=== PATIENT | male | born 1950 | race Caucasian/White ===

== ENCOUNTER 2020-03-17 10:08 | Inpatient (IN) ==
[2020-03-17] MEDS ORDERED: fentaNYL citrate 100 MCG/2 ML VIAL ONE ×2 (10:33→11:01)
[2020-03-17] MEDS ORDERED: TICAGRELOR 90 MG TAB PO ONE (10:58)
[2020-03-17] MEDS ORDERED: HEPARIN (PORCINE) 1000 UNIT/ML 10 ML (CATH LAB USE ONLY) ONE ×2 (10:58→11:01)
[2020-03-17] MEDS ORDERED: NiCARDipine HCL INJ 2.5 MG/ML 10 ML AMP ONE (11:01)
[2020-03-17] MEDS ORDERED: MIDAZOLAM HCL 1 MG/ML 2ML VIAL ONE (11:02)
[2020-03-17] MEDS ORDERED: NITROGLYCERIN/D5W 100MCG/ML 20ML SYR ONE (11:02)
[2020-03-17] MEDS ORDERED: EPTIFIBATIDE 2 MG/ML 10 ML VIAL (CATH LAB USE ONLY) IV ONE ×2 (11:05→11:08)
[2020-03-17] MEDS ORDERED: ADENOSINE IV SOLN 3 MG/ML 2 ML VIAL IV ONE (11:10)
[2020-03-17] MEDS ORDERED: FUROSEMIDE 40 MG/4 ML VIAL IV ONE (11:57)
[2020-03-17] MEDS ORDERED: EPTIFIBATIDE 0.75 MG/ML 75MG VIAL (CATH LAB USE ONLY) ONE (12:00)
[2020-03-17] MEDS: EPTIFIBATIDE 75 MG/100 ML VIAL IV SCH ×2 (12:00→17:26)
[2020-03-17] MEDS ORDERED: ICU PROTOCOL FOR HYPERGLYCEMIA PRN (12:07)
[2020-03-17] MEDS ORDERED: LEVALBUTEROL HCL 1.25 MG/3 ML NEB NEB STA (12:34)
[2020-03-17] MEDS ORDERED: EPTIFIBATIDE BOLUS/DRIP IV STA (12:52)
[2020-03-17] MEDS ORDERED: ONDANSETRON INJ 2 MG/ML 2 ML VIAL IV PRN (12:52)
[2020-03-17] MEDS ORDERED: STAT IV Infusion **Titration per Protocol STA (12:52)
--- NOTE | 2020-03-17 12:52 | Post Anesthesia Assessment ---
Date of Service March 17, 2020 Post Sedation Assessment Vital Signs Pulse Resp BP Pulse Ox 03/17/20 12:33 115 H 22 144/81 H 94 03/17/20 12:30 117 H 26 H 93 03/17/20 12:23 124 H 22 137/97 94 Recovery Score Activity: Moves 4 extremities Respiration: Deep Breath/Cough Circulation: +/-20% PreAnes Value Consciousness: Fully Awake Oxygen Saturation: O2 needed for >90% Discharge Sedation Level of Care: Higher Level of Care Post Sedation Plan On clinical assessment, the patient appears to have tolerated the sedation without complications. Patient is recovering as anticipated. Patient will continue to be monitored by nursing and may be discharged when sedation discharge criteria are met per below protocol. Upon Completions of procedure up to 15 minutes continue every 5 minute vital signs and the P.A.R. score; then discharge to a Phase I or Fast Track to Phase II per the following guidelines: * Discharge Patient to appropriate Phase II area if PAR is 8 or greater or return to pre- procedure baseline. The post - procedure orders will be as directed. * If PAR score is less than 8 or not return to pre-procedure baseline then patient will follow Phase I monitoring till PAR is reached for Phase II. The Phase I may be done in procedure room or may call to secure a Phase I area. * If naloxone or flumazenil are used for reversal, hold in Phase I for continued monitoring from when last reversal dose was given for a minimum of 60 minutes or longer pending the nurse and/or physician discretion of patient condition before discharge to Phase II. Please call the Sedation Physician to re-evaluate and complete post-note for discharge to Phase II area. Do NOT discharge from procedure sedation or Phase 1 until post- sedation evaluation note is complete by procedure /sedation MD Sedation Discharge Instructions to be given to the patient at discharge to home.
--- NOTE | 2020-03-17 13:34 | Consultation ---
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 Pt states 2:30am had indigestion and woke up around 8 AM today and developed chest pain, diaphoresis, some SOB. At [facility] ER found to have STEMI. Initial high sensitivity troponin: 21 (0-22). -Pt received ELLIOTT to LAD and ELLIOTT to first diagonal today by Dr Tran. Reported during procedure pt with mild hypotension and was given IVF and then was noted to be requiring increased oxygen and on 15L non-rebreather. Pt was given 40mg lasix IV. Pt transferred to ICU and received nebulizer treatment with reported improvement of wheezing. Post op pt with dry cough. Denies CP, N/V Was loaded with Brilinta On Integr[facility] Cardiology - Dr Tran on board Aspirin, atorvastatin, lisinopril, metoprolol tartrate, Brilinta Echo pending Trend troponin CBC, BMP, lipid panel and A1c in AM (3) Dyslipidemia: H/O dyslipidemia not on medication Lipid panel in AM Was started on atorvastatin 80mg daily (4) Obesity: BMI: 35 Suggest lifestyle modifications DVT Prophylaxis -Lovenox per cardiology Full Code as per discussion with pt Follows with Dr Ford for routine care Pt was seen and care coordinated with Dr Reynolds. See addendum Thank you for this consultation. We will follow the patient with you during their hospital stay. You can reach a member of the [facility] Hospitalist Team 10/06 via pager @ [phone]. Supervising Physician Co-Signing Physician Notes I, Dr. Zak Reynolds, have seen the patient with physician inside sales assistant and agree with the assessment and plans for this initial hospitalist and would like to add that in addition to documentation by physician inside sales assistant that : on physical exam General: patient had nebulizer treatment previous to hospitalist team arrival, no acute distress, some cough Lungs: mild wheezes noted Heart: regular rate Abdomen: truncal obesity, nontender Extremities: right wrist with TR Band compression ST ELEVATION MYOCARDIAL INFRACTION INVOLVING LEFT ANTERIOR DESCENDING (LAD) CORONARY ARTERY STATUS INSERTION OF DRUG-ELUTING STENTS TO CORONARY ARTERY TO LEFT ANTERIOR DESCENDING (LAD) CORONARY ARTERY AND 1ST DIAGONAL COUGH WHEEZING DYSLIPIDEMIA -Patient had PCI of proximal LAD with 3.5 x 30 mm Param and 2nd stent to 1st diagonal -Patient has some cough subsequent to procedure with wheezing -nebulizer treatments of duonebs ordered as every 8 hours as needed for shortness of breath or wheezing -Chest X ray after cardiac cath " Bilateral perihilar airspace opacities, perihilar pulmonary edema versus an infectious/inflammatory process." hospitalist team will give additional IV Lasix of 20 mg x 1, send procalcitonin level and blood cultures, empirically start respiratory antibiotics of ceftriaxone and Doxycycline, will give Cepacol (menthol lozenges) prn and Mucinex prn to give comfort from cough symptoms -trend troponins after his cardiac cath today -agree with other assessment and plans and recommendations as documented by physician inside sales assistant History of Present Illness Requesting Physician: Dr Tran Reason for Consultation: medical management Attending Physician: Dayday Tran MD History of Present Illness Pt is 70 y/o M with PMH dyslipidemia, obesity presented to [facility] from [facility] ER today for CP and STEMI. Pt states 2:30am had indigestion and woke up around 8 AM today and developed chest pain, diaphoresis, some SOB. Denies cough, fever,chills, N/V/D/C, VELEZ, syncope, sore throat, rhinorrhea, abdominal pain, paresthesias, extremity edema, rashes, urinary symptoms. He was seen at [facility] ER initial EKG reported to show ST depression in leads II, III, aVF, V3-V5, ST elevation in V1. Repeat EKG with ST elevation in V1-V5. 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 Pt received ELLIOTT to LAD and ELLIOTT to first diagonal. Reported during procedure pt with mild hypotension and was given IVF and then was noted to be requiring increased oxygen and on 15L non-rebreather. Pt was given 40mg lasix IV. Pt transferred to ICU and received nebulizer treatment with reported improvement of wheezing. Post op pt with dry cough. He reports no further chest pain and reports his breathing feels improved. Denies N/V, VELEZ, diaphoresis. Labs at [facility] ER reviewed: WBC: 7, H/H: 15/43, Plt: 252, K: 3.8, Na: 139, Cl: 105, CO2: 18, gluc: 145, Ca: 8.5, BUN: 15, Cr: 0.8, GFR>60, Troponin T high sensitivity: 21 (range 0-22). Allergies Allergy/AdvReac Type Severity Reaction Status Date / Time No Known Drug Allergies Allergy Unknown NONE Verified 08/19/14 10:37 Home Medications Home Medications Medication Instructions Recorded Confirmed Type glucos sul 1LXk-frj-vdbck-C-Mn 1 cap PO DAILY 03/17/20 03/17/20 History [Glucosamine Chondroitin] ysrxe-9b-vtq-epa-fish oil [[place]-3 1 cap PO DAILY 03/17/20 03/17/20 History Fish Oil] pyridoxine (vitamin B6) [Vitamin 100 mg PO DAILY 03/17/20 03/17/20 History B-6] Patient History Medical History (Updated 03/17/20 @ 13:58 by Cristine Prieto PA-C) Dyslipidemia Obesity Surgical History (Updated 03/17/20 @ 13:58 by Cristine Prieto PA-C) History of arthroscopic knee surgery History of carpal tunnel surgery History of vasectomy Family History Mother FH: CHF (congestive heart failure) Father Stroke Social History Preferred Language: Fijian Communication Ability: Effective Mechanical Facilities Technician Required: No Beliefs That Will Affect Care: None Current Living Situation: Spouse Other Information That Helps Us Care for You: No Feels Safe at Home: Yes Safety Concerns: Feels Safe At This Time Smoking Status: Never smoker Do You Dip or Chew Tobacco: No ; Second Hand Exposure: Yes (remote/childhood) ; Tobacco Cessation Education Requested by Patient: No Hx Alcohol Use: No Hx Substance Use: No Review of Systems Review of Systems: All systems reviewed & are unremarkable except as noted in HPI & below Physical Exam Physical Exam: General: mild distress currently on non-rebreather, obese Head: normocephalic, atraumatic Eyes: conjunctiva non-injected, anicteric ENT: normal inspection external ears, nose, mucous membranes moist Neck: supple, trachea midline Lungs: mild respiratory distress, +non-productive cough, +dyspnea with talking, currently on non-breather oxymask at 5L, slight scattered wheezing CV: tachycardia, rate 104, regular rhythm, no murmur, no pretibial edema Abd: normal BS, soft, protuberant, non-tender Ext: no cyanosis or erythema Neuro: A&O x 3, no focal deficits noted, normal affect Skin: warm, dry Results & Data ([facility]) Vital Signs (Past 12 Hours) Vital Signs Pulse Pulse Resp BP Pulse Ox 03/17/20 12:53 118 H 22 97 03/17/20 12:33 115 H 22 144/81 H 94 03/17/20 12:30 117 H 26 H 93 03/17/20 12:23 124 H 22 137/97 94
[2020-03-17] MEDS ORDERED: PNEUMOCOCCAL ADMINISTRATION CHARGE ONE (13:39)
[2020-03-17] MEDS ORDERED: PNEUMOCOCCAL POLYSACCHARIDES 25 MCG/0.5 ML VIAL/SYR IM ONE (13:39)
--- NOTE | 2020-03-17 13:41 | Cardiac Catheterization ---
[facility] Data: Strip Presser Cardiac Status Clinical evaluation leading to the procedure CAD Presenation: STEMI Anginal Classification: CCS IV Heart Failure: NYHA Class: CCS III Cardiogenic Shock within 24 Hours: No Cardiac Arrest within 24 Hours: No Imaging Studies Past 6 Months: No Stress Studies Past 6 Months: No Diagnostic Physicians Name: Dayday Tran MD Status: Emergency Closure Device Percutaneous Entry Location: Radial Closure Device: Radial Band Recommendations: PCI without planned CABG PCI Indication: Immediate PCI for STEMI First Noted: First EKG Reason For Delay in PCI:: Transfer from OSH Lesion Segment Name: Proximal LAD Culprit Artery: Yes Stenosis Prior to Rx (%): 100 Chronic Total Occlusion: No IVUS: No FFR: No Pre-Procedure FERNANDO Flow: 0 Previously Treated Lesion: No Lesion Complexity: High/C Lesion Length (mm): 28 Thrombus Present: Yes Bifurcation Lesion: Yes Guidewire Across Lesion: Stenosis Post-Procedure (%): 0 Post-Procedure FERNANDO Flow: 3 Devices(s) Deployed: Yes Yes Intraprocedure Events Significant Disection: No Perforation: No Cardiac Cath Procedure Full Procedure Date March 17, 2020 Pre-Procedure Diagnosis Pre-Procedure Diagnosis: STEMI AUC Score AUC Score: 9 Post-Procedure Diagnosis Post-Procedure Diagnosis: Severe CAD Procedure(s) Performed Procedure(s) Performed: Coronary Angiography, Left Heart Cath, Drug Eluting Stent and IVUS Ordnance Truck Installation Supervisor Dayday Tran MD Correctional Agency Director(s) Raul Estimated Blood Loss Estimated Blood Loss: 15 Medication(s) Medication(s): Fentanyl, Heparin, Integrilin, Lidocaine 1%, Nicardipine, Nitroglycerin and Versed Medication(s): Ticagrelor Summary of Findings Indication: STEMI/Heart Alert Access: 6 Fr slender right radial artery Catheters: EBU 3.5 guide, diagnostic JR4, pigtail Findings: LM -medium caliber vessel, luminal irregularities LAD -large caliber vessel, 100% acute proximal occlusion Circumflex -medium caliber vessel, 20 to 30% proximal, gives off large bifurcating OM 2 with 60% stenosis involving ostium of both superior and inferior branches. Small distal circumflex with luminal irregularities. RCA -medium caliber, dominant, 70% earlymid RCA stenosis, 30 to 40% stenosis just before bifurcation of PDA/PLB. PDA with luminal irregularities. LVEDP -11 -- PCI -- Antithrombotic therapy: Heparin, ticagrelor, Integrilin Procedure: Left main cannulated with EBU 3.5 Director Information Security 50 wire passed across lesion into distal vessel Proximal LAD lesion predilated with 2.5 compliant balloon Whisper wire placed into subtotally occluded first diagonal Ostium of first diagonal dilated with 2.5 balloon IVUS used to assess length of disease, degree of calcification and for vessel sizing. Proximal to mid LAD stented with 3.5 x 30 mm Param drug-eluting stent First diagonal rewired with pilot steam yacht 50 wire Ostium of diagonal/stent struts dilated with 2.0 and 2.5 balloon Repeat IVUS showed opposed stent, underexpanded Stent postdilated aggressively with 4.0 balloon After post dilation had no reflow in mid to distal LAD and diagonal treated with IC vasodilators, IC Integrilin Ostium of diagonal stented with 2.5 x 12 Point Clear drug-eluting stent Kissing balloon inflation with 4.0 NC in LAD and stent balloon in diagonal IC vasodilators administered for spasm Post procedure FERNANDO 3 flow, stents well expanded with minimal residual stenosis and no apparent cardiac complications. Patient with relative hypotension during procedure requiring intermittent IV fluids Received a total of 1 L of fluids and post procedure frequent coughing, hypoxic requiring nonrebreather. Given IV Lasix 40 mg x1. Arterial Closure: TR band Summary: 1. Anterior STEMI/acute 100% proximal LAD occlusion 2. Moderate to severe multi-vessel non-culprit coronary artery disease -70% earlymid RCA 60% stenosis involving inferior/superior branches of bifurcating OM 2 3. Acute systolic heart failure. LVEDP 26 4. Successful PCI of proximal to mid LAD with drug-eluting stent (3.5 x 30 mm Point Clear; postdilated with 4.0 NC). -Successful placement of ELLIOTT (2.5 x 12 Point Clear) to ostium of first diagonal at bifurcation with proximal LAD stent Recommendations: Admit to ICU for continued monitoring Loaded with ticagrelor 180 mg in cath With no reflow continue Integrilin for 8 hours Continue dual-antiplatelet therapy for at least 1 year. Trend troponins until peak, Check Echo Uptitrate beta-yolanda/YON as BP allows Additional Lasix as needed for heart failure symptoms High-dose statin Consult cardiac Rehab Plan for staged PCI of RCA at some point during hospitalization. Hemodynamics Rest Ao:: 110/67/80 Final Ao: 107/65/80 LV: 102/13 Recommendations Recommendations: PCI without planned CABG Specimens Specimens: None Radiation Exposure (mGy) 6901 Contrast (mls) 200 Fluids (cc crystalloids) Fluids (cc crystalloids): 1000 Drains Drains: None Anesthesia Moderate Procedural Complication(s) None Disposition ICU I attest to the content of the Intraoperative Record and any orders documented therein. Any exceptions are noted below. [facility] Card Cath Procedure Codes Cardiac Catheterization Procedure 1: Cardiovascular Cath Procedures: 36377 Coronaries and LHC (+/-LV) Therapeutic Services & Ancillary Proc Procedure 1: Cardiovascular Tx and Anc Procedures: 85579 IV Ultrasound (Coronary or Graft) Moderate Sedation Procedure 1: Sedation/Anesthesia: 80178 Mod Sedation by the same physician;Init15 Min Child Age 5 & Up Procedure 2: Sedation/Anesthesia: 14370 Mod Sedation by the same physician; Ea [id number] Minutes Stenting Procedure 1: Cardiovascular Stent Procedures: 57705 Perc transluminal revascularization of acute sub/total occl, aMI Procedure 2: Cardiovascular Stent Procedures: 73450 Ea addl branch of a major coronary artery PG Care Time/CCT Total # of Minutes Spent Total Time Spent with Patient: Total time spent is greater than 50% in coordination of care (as documented) at patient's floor/unit and/or counseling patient:
--- NOTE | 2020-03-17 15:00 | XRay Report ---
XR chest 1V portable CLINICAL HISTORY: Cough and shortness of breath COMPARISON STUDY: No previous studies for comparison. FINDINGS: The heart is normal in size. There are bilateral perihilar airspace opacities. Diagnostic c onsiderations include pulmonary edema versus a bilateral infectious/inflammatory process. There is mi ld right hilar prominence. There are no pleural effusions. There is an old right clavicular fracture. [ IMPRESSION: Bilateral perihilar airspace opacities, perihilar pulmonary edema versus an infectious/in flammatory process. Clinical and radiographic follow-up is recommended. ACT 112: Negative or not required by law. Electronically signed by: Mu Boudreaux M.D. 03/17/2020 2:59 PM
--- NOTE | 2020-03-17 15:01 | Electrocardiogram Report ---
Test Reason : Blood Pressure : / mmHG Vent. Rate : 111 BPM Atrial Rate : 111 BPM P-R Int : 154 ms QRS Dur : 092 ms QT Int : 350 ms P-R-T Axes : 053 102 005 degrees QTc Int : 476 ms Sinus tachycardia Septal infarct , age undetermined Lateral infarct , possibly acute Marked ST abnormality, possible inferior subendocardial injury ACUTE LA / STEMI Abnormal ECG No previous ECGs available Confirmed by Phill Monson ([id number]) on 03/17/2020 3:00:54 PM Referred By: Cordell Tran Confirmed By:Phill Monson
[2020-03-17] MEDS ORDERED: ALBUT/IPRATROP 3MG/0.5MG NEB 3 ML VIAL NEB PRN ×2 (15:28→16:12)
[2020-03-17] MEDS ORDERED: COUGH DROP (SUGAR FREE) LOZ 24 LOZ/1 BOX BUCCAL PRN (15:28)
[2020-03-17] MEDS ORDERED: COUGH DROP (SUGAR FREE) LOZ 24 LOZ/1 BOX BUCCAL STA (15:28)
[2020-03-17] MEDS ORDERED: guaiFENesin 600 MG TABCR PO PRN (15:30)
[2020-03-17] MEDS ORDERED: ALBUT/IPRATROP 3MG/0.5MG NEB 3 ML VIAL NEB SCH (15:30)
[2020-03-17] MEDS ORDERED: FUROSEMIDE 20 MG in SYRINGE 0 ML IV ONE (15:45)
--- NOTE | 2020-03-17 15:54 | XCELERA ---
[id number]
[2020-03-17] MEDS ORDERED: cefTRIAXone SODIUM 2,000 MG in DEXTROSE 5% 50 ML IV SCH (16:00)
[2020-03-17 16:01] LABS: Base Excess VBG -1.6 mEq/L; pH VBG 7.38 (7.36-7.41)
[2020-03-17] MEDS: METOPROLOL TARTRATE 25 MG TAB PO SCH ×2 (16:11→21:01)
[2020-03-17 16:22] LABS: BUN Creatinine Ratio 16.6 (10-20); Blood Urea Nitrogen 15 mg/dl (7-18); Calcium 8.3 mg/dl (8.5-10.1); Carbon Dioxide 23 mmol/L (21-32); Chloride 107 mmol/L (98-107); Creatinine Clr Calc Pharmacy 79.6 ml/min; Est GFR (African American) 97.3; Glucose 131 mg/dl (70-99); Potassium 4.6 mmol/L (3.5-5.1); Sodium 140 mmol/L (136-145)
[2020-03-17] MEDS ORDERED: METOPROLOL TARTRATE 25 MG TAB PO ONE (16:30)
[2020-03-17 16:45] LABS: Troponin I > 200.000 ng/ml (0-0.045)
[2020-03-17] MEDS ORDERED: DOXYCYCLINE HYCLATE 100 MG in DEXTROSE 5% 100 ML IV SCH (17:00)
--- NOTE | 2020-03-17 17:23 | Cardiology Consultation ---
Date of Consultation March 17, 2020 Assessment & Plan (1) STEMI (ST elevation myocardial infarction): --Post primary PCI with ELLIOTT to LAD, bifurcating diagonal 2. Ischemic cardiomyopathy/acute systolic heart failureEF 25 to 30% 3. Residual severe RCA disease 4. Dyslipidemia Post procedure minimal residual chest pain Urine output more than a 1.5 L after IV Lasix Respiratory symptoms improving post diuresis, bronchodilators Echo reviewedakinetic anterior wall with EF of 25 to 30% Trend troponin until peak Continue Integrilin for a total of 8 hours Continue DAPT with aspirin, ticagrelor Additional IV Lasix if worsened respiratory symptoms this evening Start low-dose beta-yolanda now Start YON in a.m. as BP allows. Spironolactone at some point if able Continue high intensity statin Plan for staged PCI of RCA at some point during hospitalization. Potentially tomorrow if renal function and acute heart failure stable. Elevated risk for LV thrombus and repeat echo in 2 days If persistent severe LV dysfunction at that time will consider LifeVest History of Present Illness Attending Physician: Dayday Tran MD History of Present Illness Mr. Galloway is a 70-year-old man here with acute chest pain and ECG concerning for anterior STEMI seen emergently on arrival as a heart alert. No prior cardiac history. Cardiac risk factors include dyslipidemia, obesity. Other medical issues include osteoarthritis. Chest pain began around 2:30 AM today, approximately 7 hours prior to arrival at [facility]. Pain initially mild, intermittent but became severe and persisting around 8:30 AM. Denies similar symptoms in the past. Initially presented to [facility] where serial ECGs noted anterior ST elevations with reciprocal inferior ST changes. Patient given heparin, aspirin prior to transfer by ground in the setting of weather. Patient hemodynamically and electrically stable on transfer. Chest pain 9 out of 10 on arrival to [facility]. Emergent catheterization revealed an occluded proximal LAD which was treated with 2 drug-eluting stents, 1 to LAD, 1 to bifurcating diagonal with good angiographic result. Also noted to have a 70% earlymid RCA stenosis. Course complicated by borderline hypotension requiring IV fluids. Post procedure, hypoxic/dyspneic requiring nonrebreather. LVEDP 26 and given IV Lasix 40 mg x 1. Allergies Allergy/AdvReac Type Severity Reaction Status Date / Time No Known Drug Allergies Allergy Unknown NONE Verified 08/19/14 10:37 Home Medications Home Medications Medication Instructions Recorded Confirmed Type glucos sul 5VOs-rhu-ztaqd-C-Mn 1 cap PO DAILY 03/17/20 03/17/20 History [Glucosamine Chondroitin] nuwar-5w-zkm-epa-fish oil [[place]-3 1 cap PO DAILY 03/17/20 03/17/20 History Fish Oil] pyridoxine (vitamin B6) [Vitamin 100 mg PO DAILY 03/17/20 03/17/20 History B-6] Patient History Medical History (Updated 03/17/20 @ 13:58 by Cristine Prieto PA-C) Dyslipidemia Obesity Surgical History (Updated 03/17/20 @ 13:58 by Cristine Prieto PA-C) History of arthroscopic knee surgery History of carpal tunnel surgery History of vasectomy Family History Mother FH: CHF (congestive heart failure) Father Stroke Social History Preferred Language: Yoruba Communication Ability: Effective Fruit Or Nut Farmworker Required: No Beliefs That Will Affect Care: None Current Living Situation: Spouse Other Information That Helps Us Care for You: No Feels Safe at Home: Yes Safety Concerns: Feels Safe At This Time Smoking Status: Never smoker Do You Dip or Chew Tobacco: No ; Second Hand Exposure: Yes (remote/childhood) ; Tobacco Cessation Education Requested by Helio pepe: No Hx Alcohol Use: No Hx Substance Use: No Review of Systems Review of Systems: All systems reviewed & are unremarkable except as noted in HPI & below Physical Exam Physical Exam: General: Uncomfortable Eyes: Sclerae anicteric HENT: Oropharynx clear mucous membranes moist Neck: Elevated JVP Lungs: Decreased breath sounds at left base, scattered wheezes, few crackles on right Cardiac: Tachycardic, regular, no murmur Vascular: TR band in place, no peripheral edema Abdomen: Soft, nontender, nondistended, positive bowel sounds. Extremities: Well perfused Skin: No rashes or lesions. Neuro: Nonfocal Psych: Alert orient x3, normal affect and mood Results & Data ([facility]) Vital Signs (Past 12 Hours) Vital Signs Temp Pulse Pulse Resp BP BP Pulse Ox 03/17/20 16:50 108 H 24 137/95 93 03/17/20 15:50 98.2 F 99 H 22 121/86 95 03/17/20 15:19 99 H 23 127/86 94 03/17/20 15:00 97.9 F 97 H 96 H 22 124/86 124/86 95 03/17/20 14:15 103 H 24 126/88 95 03/17/20 13:43 106 H 29 H 131/83 92 03/17/20 13:33 112 H 23 120/82 94 03/17/20 13:23 105 H 20 127/86 93 03/17/20 13:01 97.7 F 107 H 23 122/91 95 03/17/20 12:53 118 H 22 97 03/17/20 12:33 115 H 22 144/81 H 94 03/17/20 12:30 123 H 26 H 93 03/17/20 12:23 124 H 22 137/97 94 PG Care Time/CCT Total # of Minutes Spent Total Time Spent with Patient: Total time spent is greater than 50% in coordination of care (as documented) at patient's floor/unit and/or counseling patient: Coding Level of Care Code 06908 Inpt Consult Level 5 Diagnoses STEMI (ST elevation myocardial infarction) I21.3
--- NOTE | 2020-03-17 17:35 | History & Physical Report ---
Date of Service March 17, 2020 Assessment & Plan (1) STEMI (ST elevation myocardial infarction): ST ELEVATION MYOCARDIAL INFRACTION INVOLVING LEFT ANTERIOR DESCENDING (LAD) CORONARY ARTERY (2) S/P cardiac cath: STATUS INSERTION OF DRUG-ELUTING STENTS TO CORONARY ARTERY TO LEFT ANTERIOR DESCENDING (LAD) CORONARY ARTERY AND 1ST DIAGONAL -Pt is 70 y/o M with PMH dyslipidemia, obesity presented to [facility] [employer] from [facility] ER today for CP and STEMI. Pt states 2:30am had indigestion and woke up around 8 AM today and developed chest pain, diaphoresis, some SOB. At [facility] ER found to have STEMI. Initial high sensitivity troponin: 21 (0-22). -Pt received ELLIOTT to LAD and ELLIOTT to first diagonal today by Dr Tran. Reported during procedure pt with mild hypotension and was given IVF and then was noted to be requiring increased oxygen and on 15L non-rebreather. Pt was given 40mg lasix IV. Pt transferred to ICU and received nebulizer treatment with reported improvement of wheezing. Post op pt with dry cough. Denies CP, N/V Probable fluid overload - continue supplemental oxygen, monitor I&O's Was loaded with Brilinta On [facility] Cardiology - Dr Tran on board Aspirin, atorvastatin, lisinopril, metoprolol tartrate, Brilinta Echo pending Trend troponin CBC, BMP, lipid panel and A1c in AM (3) Dyslipidemia: H/O dyslipidemia not on medication Lipid panel in AM Was started on atorvastatin 80mg daily (4) Obesity: BMI: 35 Suggest lifestyle modifications DVT Prophylaxis -Lovenox per cardiology Full Code as per discussion with pt Follows with Dr Ford for routine care Pt was seen and care coordinated with Dr Reynolds. See addendum Thank you for this consultation. We will follow the patient with you during their hospital stay. You can reach a member of the [facility] Hospitalist Team 10/06 via pager @ [phone]. Admission and Anticipated Discharge Date Admission Date: March 17, 2020 History of Present Illness Chief Complaint: CP Primary Care Provider: Hayden Ford MD Pt is 70 y/o M with PMH dyslipidemia, obesity presented to [facility] from [facility] ER today for CP and STEMI. Pt states 2:30am had indigestion and woke up around 8 AM today and developed chest pain, diaphoresis, some SOB. Denies cough, fever,chills, N/V/D/C, VELEZ, syncope, sore throat, rhinorrhea, abdominal pain, paresthesias, extremity edema, rashes, urinary symptoms. He was seen at [facility] ER initial EKG reported to show ST depression in leads II, III, aVF, V3-V5, ST elevation in V1. Repeat EKG with ST elevation in V1-V5. Patient was started on heparin drip and was transferred by EMS to [facility]. Pt received ELLIOTT to LAD and ELLIOTT to first diagonal. Reported during procedure pt with mild hypotension and was given IVF and then was noted to be requiring increased oxygen and on 15L non-rebreather. Pt was given 40mg lasix IV. Pt transferred to ICU and received nebulizer treatment with reported improvement of wheezing. Post op pt with dry cough. He reports no further chest pain and reports his breathing feels improved. Denies N/V, VELEZ, diaphoresis. Labs at [facility] ER reviewed: WBC: 7, H/H: 15/43, Plt: 252, K: 3.8, Na: 139, Cl: 105, CO2: 18, gluc: 145, Ca: 8.5, BUN: 15, Cr: 0.8, GFR>60, Troponin T high sensitivity: 21 (range 0-22). Allergies Allergy/AdvReac Type Severity Reaction Status Date / Time No Known Drug Allergies Allergy Unknown NONE Verified 08/19/14 10:37 Home Medications Home Medications Medication Instructions Recorded Confirmed Type glucos sul [id number]-Mn 1 cap PO DAILY 03/17/20 03/17/20 History [Glucosamine Chondroitin] [id number]-epa-fish oil [[place]-3 1 cap PO DAILY 03/17/20 03/17/20 History Fish Oil] pyridoxine (vitamin B6) [Vitamin 100 mg PO DAILY 03/17/20 03/17/20 History B-6] Past Med/Surg History Medical History (Updated 03/17/20 @ 13:58 by Cristine Prieto PA-C) Dyslipidemia Obesity Surgical History (Updated 03/17/20 @ 13:58 by Cristine Prieto PA-C) History of arthroscopic knee surgery History of carpal tunnel surgery History of vasectomy Family History Mother FH: CHF (congestive heart failure) Father Stroke Social History Preferred Language: Serbian Communication Ability: Effective Director Telecommunications Required: No Beliefs That Will Affect Care: None Current Living Situation: Spouse Other Information That Helps Us Care for You: No Feels Safe at Home: Yes Safety Concerns: Feels Safe At This Time Smoking Status: Never smoker Do You Dip or Chew Tobacco: No ; Second Hand Exposure: Yes (remote/childhood) ; Tobacco Cessation Education Requested by Patient: No Hx Alcohol Use: No Hx Substance Use: No Review of Systems Review of Systems: All systems reviewed & are unremarkable except as noted in HPI & below Physical Exam Physical Exam: General: mild distress currently on non-rebreather, obese Head: normocephalic, atraumatic Eyes: conjunctiva non-injected, anicteric ENT: normal inspection external ears, nose, mucous membranes moist Neck: supple, trachea midline Lungs: mild respiratory distress, +non-productive cough, +dyspnea with talking, currently on non-breather oxymask at 5L, slight scattered wheezing CV: tachycardia, rate 104, regular rhythm, no murmur, no pretibial edema Abd: normal BS, soft, protuberant, non-tender Ext: no cyanosis or erythema Neuro: A&O x 3, no focal deficits noted, normal affect Skin: warm, dry Results & Data Results & Data ([facility]) Vital Signs (Past 12 Hours) Vital Signs Temp Pulse Pulse Resp BP BP Pulse Ox 03/17/20 16:50 108 H 24 137/95 93 03/17/20 15:50 36.8 C 99 H 22 121/86 95 03/17/20 15:19 99 H 23 127/86 94 03/17/20 15:00 36.6 C 97 H 96 H 22 124/86 124/86 95 03/17/20 14:15 103 H 24 126/88 95 03/17/20 13:43 106 H 29 H 131/83 92 03/17/20 13:33 112 H 23 120/82 94 03/17/20 13:23 105 H 20 127/86 93 03/17/20 13:01 36.5 C 107 H 23 122/91 95 03/17/20 12:53 118 H 22 97 04/30/20 12:33 115 H 22 144/81 H 94 03/17/20 12:30 123 H 26 H 93 03/17/20 12:23 124 H 22 137/97 94 Laboratory Results BMP 03/17/20 15:37 Sodium 140 Potassium 4.6 Chloride 107 Carbon Dioxide 23 BUN 15 Creatinine 0.92 Glucose 131 H Calcium 8.3 L Cardiac Enzymes 03/17/20 Range/Units 15:37 Troponin I > 200.000 H* (0-0.045) ng/ml Code Status & VTE Plan VTE Prophylaxis Plan VTE Prophylaxis will be ordered: Yes Supervising Physician Co-Signing Physician Notes I, Dr. Zak Reynolds, have seen the patient with physician quality assistant and agree with the assessment and plans for this initial hospitalist and would like to add that in addition to documentation by physician quality assistant that : on physical exam General: patient had nebulizer treatment previous to hospitalist team arrival, no acute distress, some cough Lungs: mild wheezes noted Heart: regular rate Abdomen: truncal obesity, nontender Extremities: right wrist with TR Band compression ST ELEVATION MYOCARDIAL INFRACTION INVOLVING LEFT ANTERIOR DESCENDING (LAD) CORONARY ARTERY STATUS INSERTION OF DRUG-ELUTING STENTS TO CORONARY ARTERY TO LEFT ANTERIOR DESCENDING (LAD) CORONARY ARTERY AND 1ST DIAGONAL COUGH WHEEZING DYSLIPIDEMIA -Patient had PCI of proximal LAD with 3.5 x 30 mm Param and 2nd stent to 1st diagonal -Patient has some cough subsequent to procedure with wheezing -nebulizer treatments of duonebs ordered as every 8 hours as needed for shortness of breath or wheezing -Chest X ray after cardiac cath " Bilateral perihilar airspace opacities, perihilar pulmonary edema versus an infectious/inflammatory process." hospitalist team will give additional IV Lasix of 20 mg x 1, send procalcitonin level and blood cultures, empirically start respiratory antibiotics of ceftriaxone and Doxycycline, will give Cepacol (menthol lozenges) prn and Mucinex prn to give comfort from cough symptoms -trend troponins after his cardiac cath today -agree with other assessment and plans and recommendations as documented by physician quality assistant
--- NOTE | 2020-03-17 18:51 | Critical Care Consultation ---
Date of Consultation March 17, 2020 Assessment & Plan (1) Admitted to intensive care unit: Reason Critically Ill: 70-year-old male with acute STEMI s/p PTCA w/ ELLIOTT x1 to the LAD and x1 to the Diagonal. Noted to develop pulmonary edema intraprocedurally responsive to IV Lasix likely 2/2 ischemic cardiomyopathy w/ EF ~25%. Requiring close hemodynamic monitoring s/p intervention. NEURO - * CAM ICU: NEGATIVE * Chest pain: Acetaminophen, Morphine as needed. CARDIAC/VASCULAR - * Acute STEMI s/p PTCA w/ ELLIOTT x1 to LAD and x1 to Diagonal: * Complicated w/ development of pulmonary edema. * Poor EF w/ Poor lateral wall motion akinesis. * Responded to IV Lasix dosing. * Saturating well at this time. * Repeat dosing of Lasix if needed. * Currently on Integrilin gtt. * ASCVD Rx per typical. * Possible need for repeat cath per interventionalist report. * Trend troponins. * EKG: ST@111bpm. ST elevations laterally w/ ST depressions inferiorly. QTc 476 ms. * Monitor on telemetry. RESPIRATORY - * Respiratory distress w/ hypoxia: * 2/2 pulmonary edema w/ reduced EF. * CXR reviewed and demonstrates moderate pulmonary edema. * Diuresed appropriately w/ IV Lasix. Repeat if needed. * Addition of PPV techniques if needed. * Encourage incentive spirometry. * Loaded with IV Rocephin/Doxy. Will hold at this time. * Slight apical wheezing noted on exam. Albuterol inhaler PRN. GI/NUTRITION - * AHA Diet * Prophylaxis: Protonix RENAL/LYTES - * No significant electrolyte derangements. * Monitor lytes closely s/p Lasix administration. * IVF: Hold 2/2 pulmonary edema w/ reduced EF. - * Strict I&Os. ENDO - * No h/o DM * AM Hgb A1c * BSGs per unit protocol. ISS --> gtt per unit policy. HEME - * Monitor closely for bleeding s/p heparin/Integrilin gtts. ID - * Initially loaded w/ Rocephin/Doxy. * Will hold at this time. * PCT not elevated. * Lung pathology likely represents CHF w/ absence of other URI symptomatology. LINES/IV ACCESS - * PIVs x2 DVT PROPHYLAXIS - * Hold on chemoprophylaxis 2/2 recent Heparin load and current Integrilin gtt. * SCDs I have personally spent 35 minutes of critical care time in the direct management of this patient. This is a life/limb threatening event. This includes time spent evaluating patient, direct bedside care, chart review, placing orders, interpretation of diagnostic studies, discussion with consultants, patient, and family members, as well as other required patient management activities. This time is exclusive of all separately billable procedures, and teaching time and separate from and in addition to any other critical care service time. Thank you for allowing us to participate in the care of this patient. Please refer to my attending physician's documentation for any further recommendations. (2) STEMI (ST elevation myocardial infarction): (3) S/P PTCA (percutaneous transluminal coronary angioplasty): (4) S/P drug eluting coronary stent placement: (5) CHF (congestive heart failure): (6) Ischemic cardiomyopathy: (7) Hypoxia: (8) Obesity: (9) Dyslipidemia: Supervising Physician Co-Signing Physician Notes I was made aware of this patient via telephone by Dr. Tran of cardiology as well as Anabel Rubi. I agree with the documentation above. History of Present Illness Attending Physician: Dayday Tran MD History of Present Illness Patient is a 70-year-old male with a significant past medical history of hyperlipidemia and obesity who was transferred to this facility as a HEART ALERT from [facility]. The patient reports that he did notice some occasional LEFT-sided upper chest discomfort last week which was somewhat worse with activity. He reports that he had been lifting some heavy objects and felt as though he may have simply exacerbated an injury he sustained approximately a year ago secondary to a traumatic fall. He reports that he has been doing well otherwise and without reported complaints of exertional chest discomfort. Early in the morning he reports that he was having what he described as indigestion. His did give him Maalox as well as other medications which did seem to help with his symptoms. He was able to sleep until 8:30 in the morning and awoke feeling symptom-free. Approximately 15 minutes after awakening, patient reports a sharp and stabbing pain in the LEFT-sided chest. The pain did not remit. At this point, his contacted 911. He was taken to the [facility] emergency department where he was found to have an acute ST segment elevation m yocardial infarction. Secondary to weather constraints and close appropriate facility, the patient was transferred to this facility for need for possible intervention. Upon arrival, the patient was noted to have acute ST segment elevations in the lateral leads as well as what appear to be ST depressions inferiorly. He was taken emergently to the catheterization suite where he successfully underwent PTCA with ELLIOTT x1 to the LAD and x1 to the diagonal. Intra-procedurally, the patient did receive a 1 L fluid bolus secondary to hypotension. Patient did develop shortness of breath during procedure and received a 40 mg dose of IV Lasix. Chest x-ray concerning for pulmonary edema. The patient was noted to have an EF approximately 25%. Patient was noted to have residual RIGHT-sided disease which will be addressed later during patient's stay. Patient is actively diuresed greater than 1.5 L at this time. He reports that his breathing feels better although he complains of some residual chest discomfort rating his pain a 3/10. He reports this is much improved from initial presentation. Upon evaluation in the ICU, the patient is awake, alert, and oriented. He complains of some residual left-sided chest pain without radiation rating his discomfort 3/10. He reports this is greatly improved. He denies any pleuritic pain. He reports that his shortness of breath has improved. Patient denies any recent symptoms of upper respiratory infection including cough, nasal congestion, fevers, sore throat, or recent sick contacts. He specifically reports that he has not been around any individuals under investigation for COVID or COVID positive patients. He is adamant that his cough only started while at this facility. Patient currently denies any headaches, dizziness, lightheadedness, palpitations, hemoptysis, nausea, vomiting, abdominal pain, or numbness/weakness to the extremities. Allergies Allergy/AdvReac Type Severity Reaction Status Date / Time No Known Drug Allergies Allergy Unknown NONE Verified 08/19/14 10:37 Home Medications Home Medications Medication Instructions Recorded Confirmed Type glucos sul [id number]-C-Mn 1 cap PO DAILY 03/17/20 03/17/20 History [Glucosamine Chondroitin] yeevy-[id number]-epa-fish oil [[place]-3 1 cap PO DAILY 03/17/20 03/17/20 History Fish Oil] pyridoxine (vitamin B6) [Vitamin 100 mg PO DAILY 03/17/20 03/17/20 History B-6] Patient History Medical History Dyslipidemia Obesity Surgical History History of arthroscopic knee surgery History of carpal tunnel surgery History of vasectomy Family History Mother FH: CHF (congestive heart failure) Father Stroke Social History Preferred Language: Wallisian Communication Ability: Effective Loom Tuner Required: No Beliefs That Will Affect Care: None Current Living Situation: Spouse Other Information That Helps Us Care for You: No Feels Safe at Home: Yes Safety Concerns: Feels Safe At This Time Smoking Status: Never smoker Do You Dip or Chew Tobacco: No ; Second Hand Exposure: Yes (remote/childhood) ; Tobacco Cessation Education Requested by Patient: No Hx Alcohol Use: No Hx Substance Use: No Review of Systems Review of Systems: A complete 10 point review of systems was reviewed with the patient with pertinent positives and negatives as per history of present illness. All else were negative. Physical Exam Physical Exam: VITAL SIGNS - Vital signs and nursing notes were reviewed. GENERAL - 70-year-old male appearing his stated age who is in no acute distress. Communicates well with provider and answers questions appropriately. HEAD - NC/AT. EYES - PERRL with EOMI bilaterally. Sclera anicteric. EARS - No deformities of external structures noted on gross examination bilaterally. NOSE - Midline and without cyanosis. MOUTH/OROPHARYNX - Without perioral cyanosis. Buccal mucosa pink and moist and without leukoplakia. NECK - Neck with FROM. LUNGS - Chest wall symmetric without accessory muscle use, intercostals retractions, or central cyanosis. Normal vesicular breath sounds with scant apical wheezing noted. Lung sounds diminished at the bases. No rales or rhonchi noted. CARDIAC - RRR with S1/S2. No murmur, rubs, or gallops appreciated. No reproducible tenderness to palpation appreciated over the anterior chest wall. ABDOMEN - Abdominal contour protuberant without pulsations or visible masses. BS normoactive all four quadrants. No tenderness, palpable masses, hepatosplenomegaly, or ascites noted. EXTREMITIES - No clubbing or peripheral cyanosis. No pretibial edema present. +3/5 radial and dorsalis pedis pulses palpated throughout. +5/5 strength noted in UE/LE bilaterally. NEUROLOGIC - Cranial nerves II through XII grossly intact. Sensory intact to light touch throughout. PSYCH - A&Ox3 and cooperates fully with examiner. Pt is very pleasant and interacts well with examiner. Results & Data Results & Data ([facility]) Vital Signs (Past 12 Hours) Vital Signs Temp Pulse Pulse Resp BP BP Pulse Ox 03/17/20 17:50 98 H 24 124/87 95 03/17/20 17:00 102 H 03/17/20 16:50 108 H 24 137/95 93 03/17/20 15:50 36.8 C 99 H 22 121/86 95 03/17/20 15:19 99 H 23 127/86 94 03/17/20 15:00 36.6 C 97 H 96 H 22 124/86 124/86 95 03/17/20 14:15 103 H 24 126/88 95 03/17/20 13:43 106 H 29 H 131/83 92 03/17/20 13:33 112 H 23 120/82 94 03/17/20 13:23 105 H 20 127/86 93 03/17/20 13:01 36.5 C 107 H 23 122/91 95 03/17/20 12:53 118 H 22 97 03/17/20 12:33 115 H 22 144/81 H 94 03/17/20 12:30 123 H 26 H 93 03/17/20 12:23 124 H 22 137/97 94 Coding Level of Care Code Critical Care 1st 30-74 mins Diagnoses Admitted to intensive care unit Z78.9 STEMI (ST elevation myocardial infarction) I21.3 S/P PTCA (percutaneous transluminal coronary angioplasty) Z98.61 S/P drug eluting coronary stent placement Z95.5 CHF (congestive heart failure) I50.9 Ischemic cardiomyopathy I25.5 Hypoxia R09.02 Obesity E66.9 Dyslipidemia E78.5 Time Spent (min) 35
[2020-03-17] MEDS: TICAGRELOR 90 MG TAB PO SCH (21:01)
[2020-03-17] MEDS: ATORVASTATIN 40 MG TAB PO SCH (21:02)
[2020-03-17] MEDS: ACETAMINOPHEN 325 MG TAB PO PRN (22:17)
[2020-03-18] MEDS ORDERED: MoRPHine SULFATE 2 MG/ML CARP IV STA (00:07)
[2020-03-18] MEDS ORDERED: MoRPHine SULFATE 2 MG/ML CARP ONE (00:17)
[2020-03-18] MEDS: ACETAMINOPHEN 325 MG TAB PO PRN (03:56)
[2020-03-18 04:35] LABS: Basophils # (auto) 0.02 K/uL (0-0.2); Basophils % (auto) 0.1 %; Eosinophils # (auto) 0.01 K/uL (0-0.5); Eosinophils % (auto) 0.1 %; Hematocrit (blood only) 46.9 % (42-52); Hemoglobin 15.8 g/dL (14.0-18.0); Immature Granulocytes # (auto) 0.03 K/uL (0.00-0.02); Immature Granulocytes % (auto) 0.2 %; Lymphocytes # (auto) 1.65 K/uL (1.2-3.4); Lymphocytes % (auto) 11.8 %; Mean Corpuscular Hemoglobin 33.3 pg (25-34); Mean Corpuscular Hgb Conc 33.7 g/dL (32-36); Mean Corpuscular Volume 98.7 fL (80-100); Mean Platelet Volume 10.9 fL (7.4-10.4); Monocytes # (auto) 1.01 K/uL (0.11-0.59); Monocytes % (auto) 7.2 %; Neutrophils # (auto) 11.31 K/uL (1.4-6.5); Neutrophils % (auto) 80.6 %; Platelet Count 245 K/uL (130-400); RDW Coefficient of Variation 14.5 % (11.5-14.5); RDW Standard Deviation 52.4 fL (36.4-46.3); Red Blood Count 4.75 M/uL (4.7-6.1); White Blood Count 14.03 K/uL (4.8-10.8)
[2020-03-18 04:58] LABS: BUN Creatinine Ratio 17.7 (10-20); Creatinine Clr Calc Pharmacy 76.3 ml/min; Est GFR (African American) 92.4; Est GFR (Non-African American) 79.8; Magnesium 1.7 mg/dl (1.8-2.4)
[2020-03-18 05:19] LABS: Phosphorus 2.6 mg/dl (2.5-4.9)
[2020-03-18 06:02] LABS: Estimated Average Glucose 117 mg/dl; Hemoglobin A1C 5.7 % (4.5-5.6)
[2020-03-18] MEDS ORDERED: MIDAZOLAM HCL 1 MG/ML 2ML VIAL ONE (08:05)
[2020-03-18] MEDS ORDERED: HEPARIN (PORCINE) 1000 UNIT/ML 10 ML (CATH LAB USE ONLY) ONE ×2 (08:05→09:14)
[2020-03-18] MEDS ORDERED: NiCARDipine HCL INJ 2.5 MG/ML 10 ML AMP ONE (08:05)
[2020-03-18] MEDS ORDERED: fentaNYL citrate 100 MCG/2 ML VIAL ONE (08:05)
[2020-03-18] MEDS ORDERED: NITROGLYCERIN/D5W 100MCG/ML 20ML SYR ONE (08:07)
[2020-03-18] MEDS: TICAGRELOR 90 MG TAB PO SCH ×2 (08:25→22:25)
--- NOTE | 2020-03-18 08:29 | Pre Anesthesia Assessment ---
Date of Service March 18, 2020 Pre Sedation Assessment Vital Signs Temp Pulse Pulse Resp BP BP Pulse Ox 03/18/20 08:00 98.4 F 98 H 100 H 24 118/84 92 03/18/20 05:51 98 H 26 H 116/74 90 03/18/20 04:51 99 H 29 H 116/75 90 03/18/20 03:50 98.6 F 106 H 16 125/81 91 03/18/20 03:31 111 H 21 127/87 92 03/18/20 03:08 98 H 22 91 03/18/20 02:51 101 H 24 106/69 89 L 03/18/20 01:51 95 H 26 H 105/70 91 03/18/20 00:50 94 H 25 H 108/71 92 03/18/20 00:09 99 H 03/17/20 23:50 98.1 F 99 H 22 115/73 92 03/17/20 22:50 95 H 28 H 109/73 93 03/17/20 21:50 97 H 26 H 119/77 93 03/17/20 20:50 101 H 28 H 123/85 94 03/17/20 19:50 98.2 F 99 H 25 H 124/78 91 03/17/20 18:50 98 H 25 H 124/86 94 03/17/20 17:50 98 H 24 124/87 95 03/17/20 17:00 102 H 03/17/20 16:50 108 H 24 137/95 93 03/17/20 15:50 98.2 F 99 H 22 121/86 95 03/17/20 15:19 99 H 23 127/86 94 03/17/20 15:00 97.9 F 97 H 96 H 22 124/86 124/86 95 03/17/20 14:15 103 H 24 126/88 95 03/17/20 13:43 106 H 29 H 131/83 92 03/17/20 13:33 112 H 23 120/82 94 03/17/20 13:23 105 H 20 127/86 93 03/17/20 13:01 97.7 F 107 H 23 122/91 95 03/17/20 12:53 118 H 22 97 03/17/20 12:33 115 H 22 144/81 H 94 03/17/20 12:30 123 H 26 H 93 03/17/20 12:23 124 H 22 137/97 94 Cardiovascular RRR, no murmur, no edema Respiratory normal respiratory effort, lungs clear to auscultation Pre-Sedation Airway Assessment Smoking Status: Never smoker Hx Sleep Apnea: No Hx Difficult Intubation: No Short, Thick Neck: No Thyromental Distance: > or= 3.5 Finger Breadths Oral Cavity: + WNL Mallampati Class: III ASA: ASA3 NPO Status Date of Last Intake of Fluids: 03/18/20 Time of Last Intake of Fluids: 08:25 Last Oral Intake of Fluids Comment: sip with meds Date of Last Intake of Solid Food: 03/17/20 Time of Last Intake of Solid Foods: 21:00 Procedure Planning Contraindications for Sedation: none Current Medications Reviewed: Yes Notes The planned sedation has been discussed with the patient. Informed Consent was obtained. I have identified the patient, determined the appropriateness of se dation and have assessed the patient immediately prior to the procedure. All medicine(s) and interventions are by my order.
--- NOTE | 2020-03-18 08:29 | Cardiology Progress Note ---
Date of Service March 18, 2020 Assessment & Plan (1) STEMI (ST elevation myocardial infarction): --Post primary PCI with ELLIOTT to LAD, bifurcating diagonal 2. Ischemic cardiomyopathy/acute systolic heart failureEF 25 to 30% 3. Residual severe RCA disease 4. Dyslipidemia Chest pain largely resolved, troponin peaked > 200. Negative more than 1.5 L after IV lasix x1 yesterday. Well perfused with mild congestion on exam today. Renal function stable. No access site complications. Plan for staged PCI of RCA this morning with repeat left heart catheterization -- Likely additional lasix post procedure Continue DAPT with aspirin, ticagrelor Increase metoprolol to 25 mg BID Start losartan today Try to add spironolactone at some point Continue high intensity statin Repeat echo tomorrow to eval LV function, rule out LV thrombus If persistent severe LV dysfunction at that time will consider LifeVest on discharge Admission and Anticipated Discharge Date Admission Date: March 17, 2020 Subjective Reports some mild chest discomfort overnight and intermittent wheezing. Treated with morphine x1, nebs. This morning chest pain largely resolved. Still mild dyspnea. No significant pain at right radial artery access site. Tele reviewed -- sinus 90-100s, no arrhythmia. Review of Systems Review of Systems: All systems reviewed & are unremarkable except as noted in HPI & below Physical Exam Physical Exam: General: comfortable Eyes: Sclerae anicteric HENT: Oropharynx clear mucous membranes moist Lungs: few scattered wheezes Cardiac: regular, no murmur Vascular: Right radial artery access site with no ecchymosis, hematoma. Distal pulse and sensation intact. Abdomen: Soft, nontender, nondistended, positive bowel sounds. Extremities: Well perfused Skin: No rashes or lesions. Neuro: Nonfocal Psych: Alert orient x3, normal affect and mood Results & Data ([facility]) Vital Signs (Past 12 Hours) Vital Signs Temp Pulse Pulse Resp BP Pulse Ox 03/18/20 05:51 98 H 26 H 116/74 90 03/18/20 04:51 99 H 29 H 116/75 90 03/18/20 03:50 98.6 F 106 H 16 125/81 91 03/18/20 03:31 111 H 21 127/87 92 03/18/20 03:08 98 H 22 91 03/18/20 02:51 101 H 24 106/69 89 L 03/18/20 01:51 95 H 26 H 105/70 91 03/18/20 00:50 94 H 25 H 108/71 92 03/18/20 00:09 99 H 03/17/20 23:50 98.1 F 99 H 22 115/73 92 03/17/20 22:50 95 H 28 H 109/73 93 03/17/20 21:50 97 H 26 H 119/77 93 03/17/20 20:50 101 H 28 H 123/85 94 PG Care Time/CCT Total # of Minutes Spent Total Time Spent with Patient: Total time spent is greater than 50% in coordination of care (as documented) at patient's floor/unit and/or counseling patient: Coding Level of Care Code 07374 Subseq Hosp Care Lvl 3 Diagnoses STEMI (ST elevation myocardial infarction) I21.3
[2020-03-18] MEDS ORDERED: ATROPINE SULFATE 0.1 MG/ML 10ML SYR IV ONE (09:11)
[2020-03-18] MEDS ORDERED: FUROSEMIDE 40 MG/4 ML VIAL IV ONE (09:16)
--- NOTE | 2020-03-18 09:24 | Post Anesthesia Assessment ---
Date of Service March 18, 2020 Post Sedation Assessment Vital Signs Temp Pulse Pulse Resp BP BP Pulse Ox 03/18/20 08:00 98.4 F 98 H 100 H 24 118/84 92 03/18/20 05:51 98 H 26 H 116/74 90 03/18/20 04:51 99 H 29 H 116/75 90 03/18/20 03:50 98.6 F 106 H 16 125/81 91 03/18/20 03:31 111 H 21 127/87 92 03/18/20 03:08 98 H 22 91 03/18/20 02:51 101 H 24 106/69 89 L 03/18/20 01:51 95 H 26 H 105/70 91 03/18/20 00:50 94 H 25 H 108/71 92 03/18/20 00:09 99 H 03/17/20 23:50 98.1 F 99 H 22 115/73 92 03/17/20 22:50 95 H 28 H 109/73 93 03/17/20 21:50 97 H 26 H 119/77 93 03/17/20 20:50 101 H 28 H 123/85 94 03/17/20 19:50 98.2 F 99 H 25 H 124/78 91 03/17/20 18:50 98 H 25 H 124/86 94 03/17/20 17:50 98 H 24 124/87 95 03/17/20 17:00 102 H 03/17/20 16:50 108 H 24 137/95 93 03/17/20 15:50 98.2 F 99 H 22 121/86 95 03/17/20 15:19 99 H 23 127/86 94 03/17/20 15:00 97.9 F 97 H 96 H 22 124/86 124/86 95 03/17/20 14:15 103 H 24 126/88 95 03/17/20 13:43 106 H 29 H 131/83 92 03/17/20 13:33 112 H 23 120/82 94 03/17/20 13:23 105 H 20 127/86 93 03/17/20 13:01 97.7 F 107 H 23 122/91 95 03/17/20 12:53 118 H 22 97 03/17/20 12:33 115 H 22 144/81 H 94 03/17/20 12:30 123 H 26 H 93 03/17/20 12:23 124 H 22 137/97 94 Recovery Score Activity: Moves 4 extremities Respiration: Deep Breath/Cough Circulation: +/-20% PreAnes Value Consciousness: Fully Awake Oxygen Saturation: O2 needed for >90% Discharge Sedation Level of Care: Fast Track Phase II Post Sedation Plan On clinical assessment, the patient appears to have tolerated the sedation with out complications. Patient is recovering as anticipated. Patient will continue to be monitored by nursing and may be discharged when sedation discharge criteria are met per below protocol. Upon Completions of procedure up to 15 minutes continue every 5 minute vital signs and the P.A.R. score; then discharge to a Phase I or Fast Track to Phase II per the following guidelines: * Discharge Patient to appropriate Phase II area if PAR is 8 or greater or return to pre- procedure baseline. The post - procedure orders will be as directed. * If PAR score is less than 8 or not return to pre-procedure baseline then patient will follow Phase I monitoring till PAR is reached for Phase II. The Phase I may be done in procedure room or may call to secure a Phase I area. * If naloxone or flumazenil are used for reversal, hold in Phase I for continued monitoring from when last reversal dose was given for a minimum of 60 minutes or longer pending the nurse and/or physician discretion of patient condition before discharge to Phase II. Please call the Sedation Physician to re-evaluate and complete post-note for discharge to Phase II area. Do NOT discharge from procedure sedation or Phase 1 until post- sedation evaluation note is complete by procedure /sedation MD Sedation Discharge Instructions to be given to the patient at discharge to home.
--- NOTE | 2020-03-18 09:34 | Cardiac Catheterization ---
[facility] Data: Tower Erector Helper Cardiac Status Clinical evaluation leading to the procedure CAD Presenation: STEMI Anginal Classification: CCS IV Heart Failure: NYHA Class: CCS IV Cardiogenic Shock within 24 Hours: No Cardiac Arrest within 24 Hours: No Imaging Studies Past 6 Months: Yes Stress Studies Past 6 Months: No Diagnostic Physicians Name: Dayday Tran MD Status: Elective Closure Device Percutaneous Entry Location: Radial Closure Device: Radial Band Recommendations: PCI without planned CABG PCI Indication: Staged PCI Lesion Segment Name: Mid RCA Culprit Artery: Yes Stenosis Prior to Rx (%): 70 Pre-Procedure FERNANDO Flow: 3 Previously Treated Lesion: No Lesion Complexity: Non-High/Non-C Lesion Length (mm): 15 Thrombus Present: Yes Bifurcation Lesion: No Guidewire Across Lesion: Stenosis Post-Procedure (%): 0 Post-Procedure FERNANDO Flow: 3 Devices(s) Deployed: Yes Yes Intraprocedure Events Significant Disection: No Perforation: No Cardiac Cath Procedure Full Procedure Date March 18, 2020 Pre-Procedure Diagnosis Pre-Procedure Diagnosis: Acute Coronary Syndrome AUC Score AUC Score: 7 Post-Procedure Diagnosis Post-Procedure Diagnosis: Severe CAD, Successful PCI and Elevated Intracardiac Pressures Procedure(s) Performed Procedure(s) Performed: Coronary Angiography, Left Heart Cath, Drug Eluting Stent and Ultrasound Guided Vascular Access Silk Presser Dayday Tran MD Registered Private Duty Nurse(s) Mark Estimated Blood Loss Estimated Blood Loss: 15 Medication(s) Medication(s): Fentanyl, Heparin, Integrilin, Lidocaine 1%, Nicardipine, Nitroglycerin and Versed Medication(s): Ticagrelor Summary of Findings Indication: Staged PCI of earlymid RCA Post primary PCI for anterior STEMI with stents to proximal 80, first diagonal yesterday. Access: 6 Fr right radial artery under ultrasound guidance Catheters: JR4 guide, pigtail, diagnostic JL 3.5 Findings: LM -medium caliber, luminal regular LAD -proximal to mid LAD stent widely patent, diagonal stent widely patent. Circumflex -medium caliber vessel with 20 to 30% proximal disease, large bifurcating OM 2 with 60 to 70% ostial stenosis in inferior branch. RCA -large caliber, dominant, 70% acute appearing earlymid RCA stenosis with subtotal occlusion of marginal branch at takeoff of stenosis. Distal luminal irregularities, 50% mid right PDA stenosis LVEDP -20 -- PCI -- Antithrombotic therapy: Heparin, ticagrelor Procedure: RCA cannulated with JR4 guide BMW wire passed across lesion into distal vessel Mid RCA lesion predilated with 3.0 compliant balloon Dilated lesion stented with 3.5 x 18 mm Param drug-eluting stent Stent post-dilated with 4.0 noncompliant balloon IC vasodilators administered for spasm Post procedure FERNANDO 3 flow, stent well expanded with minimal residual stenosis and no apparent cardiac complications. Arterial Closure: TR band Summary: 1. 70% acute appearing earlymid RCA stenosis 2. Widely patent LAD and first diagonal stents 3. Residual moderate to severe stenosis in inferior branch of OM 2 4. Elevated intracardiac filling pressure. LVEDP 20 5. Successful PCI of earlymid RCA with single drug-eluting stent (3.5 x 18 mm Mott; postdilated with 4.0 NC). Recommendations: To ICU for continued monitoring Continue dual-antiplatelet therapy aspirin, ticagrelor Titrate beta-yolanda, ARB Medical management of residual CAD Give an additional 40 mg of IV Lasix in Tower Erector Helper. Hemodynamics Rest Ao:: 114/68/95 Final Ao: 107/63/82 LV: 107/20 Recommendations Recommendations: PCI without planned CABG Specimens Specimens: None Radiation Exposure (mGy) 1178 Contrast (mls) 65 Fluids (cc crystalloids) Fluids (cc crystalloids): 50 Drains Drains: None Anesthesia Moderate Procedural Complication(s) None Disposition ICU I attest to the content of the Intraoperative Record and any orders documented therein. Any exceptions are noted below. [facility] Card Cath Procedure Codes Cardiac Catheterization Procedure 1: Cardiovascular Cath Procedures: 59771 Left Heart Cath (+/-LV) Therapeutic Services & Ancillary Proc Procedure 1: Cardiovascular Tx and Anc Procedures: 69508 Ultrasonic Guidance Vascular Access Moderate Sedation Procedure 1: Sedation/Anesthesia: 82817 Mod Sedation by the same physician;Init15 Min Child Age 5 & Up Procedure 2: Sedation/Anesthesia: 04854 Mod Sedation by the same physician; Ea [id number] Minutes Stenting Procedure 1: Cardiovascular Stent Procedures: 35363 Perc transcatheter placement of intracoronary stent(s), with ang PG Care Time/CCT Total # of Minutes Spent Total Time Spent with Patient: Total time spent is greater than 50% in coordination of care (as documented) at patient's floor/unit and/or counseling patient:
[2020-03-18] MEDS: PANTOprazole 40 MG TAB PO SCH (10:23)
[2020-03-18] MEDS: ASPIRIN 81 MG ECTAB PO SCH (10:23)
[2020-03-18] MEDS: LOSARTAN POTASSIUM 25 MG TAB PO SCH (10:23)
[2020-03-18] MEDS: METOPROLOL TARTRATE 25 MG TAB PO SCH ×2 (10:23→22:24)
--- NOTE | 2020-03-18 11:12 | Critical Care Progress Note ---
Date of Service March 18, 2020 Assessment & Plan (1) Admitted to intensive care unit: Reason Critically Ill: 70-year-old male with acute STEMI s/p PTCA w/ ELLIOTT x1 to the LAD and x1 to the Diagonal. Noted to develop pulmonary edema intraprocedurally responsive to IV Lasix likely 2/2 ischemic cardiomyopathy w/ EF ~25%. Requiring close hemodynamic monitoring s/p intervention. NEURO - * CAM ICU: NEGATIVE * Chest pain: Acetaminophen, Morphine as needed. CARDIAC/VASCULAR - * Acute STEMI s/p PTCA w/ ELLIOTT x1 to LAD and x1 to Diagonal: * Poor EF w/ Poor lateral wall motion akinesis. * Saturating well at this time. * Repeat dosing of Lasix if needed. * ASCVD Rx per typical. * Monitor on telemetry. RESPIRATORY - * Respiratory distress w/ hypoxia: Improved * 2/2 pulmonary edema w/ reduced EF. * CXR reviewed and demonstrates moderate pulmonary edema. * Loaded with IV Rocephin/Doxy. Discontinue, pro-Bubba negative, this is cardiac in origin * Reactive airway disease * Slight apical wheezing noted on exam. Albuterol inhaler PRN. GI/NUTRITION - * AHA Diet * Prophylaxis: Protonix RENAL/LYTES - * No significant electrolyte derangements. - * Strict I&Os. ENDO - * No h/o DM * AM Hgb A1c * BSGs per unit protocol. ISS --> gtt per unit policy. HEME - * Monitor closely for bleeding s/p heparin/Integrilin gtts. ID - * Initially loaded w/ Rocephin/Doxy. * Will hold at this time. * PCT not elevated. * Lung pathology likely represents CHF w/ absence of other URI symptomatology. LINES/IV ACCESS - * PIVs x2 DVT PROPHYLAXIS - * SCDs * Lovenox Disposition: ICU for monitoring today (2) STEMI (ST elevation myocardial infarction): (3) S/P PTCA (percutaneous transluminal coronary angioplasty): (4) S/P drug eluting coronary stent placement: (5) CHF (congestive heart failure): (6) Ischemic cardiomyopathy: (7) Hypoxia: (8) Obesity: (9) Dyslipidemia: Admission and Anticipated Discharge Date Admission Date: March 17, 2020 Subjective Patient had return from his heart catheterization today. Entry through right radial, pressure dressing in place, no complaints of chest pain, mild wheeze, no exertional dyspnea, no shortness of breath Review of Systems Review of Systems: All systems reviewed & are unremarkable except as noted in HPI & below Physical Exam Physical Exam: General: Alert. nontoxic. Skin: Warm, dry, Head: Atraumatic Ears, nose, mouth and throat: airway patent Cardiovascular: Normal peripheral perfusion Respiratory: no respiratory distress Gastrointestinal: Non distended, protuberant Musculoskeletal: No deformity Results & Data Results & Data ([facility]) Vital Signs (Past 12 Hours) Vital Signs Temp Pulse Pulse Resp BP BP Pulse Ox 03/18/20 10:33 103 H 22 122/85 95 03/18/20 10:30 103 H 24 93 03/18/20 10:18 135/91 93 03/18/20 10:03 97 H 24 117/84 93 03/18/20 10:00 97 H 24 93 03/18/20 09:48 96 H 26 H 117/77 91 03/18/20 09:43 97 H 24 128/68 03/18/20 09:42 97 H 24 03/18/20 08:00 36.9 C 96 H 100 H 22 118/84 91 03/18/20 07:51 97 H 24 115/77 91 03/18/20 07:30 96 H 24 91 03/18/20 07:00 95 H 22 92 03/18/20 06:51 97 H 24 118/84 90 03/18/20 06:30 96 H 24 90 03/18/20 05:51 98 H 26 H 116/74 90 03/18/20 04:51 99 H 29 H 116/75 90 03/18/20 03:50 37 C 106 H 16 125/81 91 03/18/20 03:31 111 H 21 127/87 92 03/18/20 03:08 98 H 22 91 03/18/20 02:51 101 H 24 106/69 89 L 03/18/20 01:51 95 H 26 H 105/70 91 03/18/20 00:50 94 H 25 H 108/71 92 03/18/20 00:09 99 H 03/17/20 23:50 36.7 C 99 H 22 115/73 92 Laboratory Results 03/18/20 03/18/20 03/18/20 Range/Units 09:10 04:05 04:05 WBC (4.8-10.8) K/uL RBC (4.7-6.1) M/uL Hgb (14.0-18.0) g/dL Hct (42-52) % MCV (80-100) fL MCH (25-34) pg MCHC (32-36) g/dL RDW Std Deviation (36.4-46.3) fL RDW Coeff of Crystal (11.5-14.5) % Plt Count (130-400) K/uL MPV (7.4-10.4) fL Immature Gran % (Auto) % Neut % (Auto) % Lymph % (Auto) % Stone % (Auto) % Eos % (Auto) % Baso % (Auto) % Immature Gran # (Auto) (0.00-0.02) K/uL Neut # (Auto) (1.4-6.5) K/uL Lymph # (Auto) (1.2-3.4) K/uL Stone # (Auto) (0.11-0.59) K/uL Eos # (Auto) (0-0.5) K/uL Baso # (Auto) (0-0.2) K/uL Activ Coag Time Kaolin 246 H (94-140) SECONDS VBG pH (7.36-7.41) VBG pCO2 (38-50) mmHg VBG pO2 mmHg VBG HCO3 mmol/L VBG O2 Saturation % VBG Base Excess mEq/L Barometric Pressure mm/Hg Sodium 139 (136-145) mmol/L Potassium 4.0 (3.5-5.1) mmol/L Chloride 106 (98-107) mmol/L Carbon Dioxide 24 (21-32) mmol/L Anion Gap 9.0 (3-11) BUN 17 (7-18) mg/dl Creatinine 0.96 (0.6-1.4) mg/dl Est Cr Clr Drug Dosing 76.3 ml/min Est GFR ( Amer) 92.4 Est GFR (Non-Af Amer) 79.8 BUN/Creatinine Ratio 17.7 (10-20) Glucose 150 H (70-99) mg/dl POC Glucose (70-99) mg/dl Estimat Average Glucose 117 mg/dl Hemoglobin A1c 5.7 H (4.5-5.6) % Calcium 8.0 L (8.5-10.1) mg/dl Phosphorus 2.6 (2.5-4.9) mg/dl Magnesium 1.7 L (1.8-2.4) mg/dl Troponin I 139.000 H* (0-0.045) ng/ml Triglycerides 94 (0-150) mg/dl Cholesterol 242 H (0-200) mg/dl LDL Cholesterol, Calc 177 mg/dl VLDL Cholesterol, Calc 19 mg/dl HDL Cholesterol 46 mg/dl Cholesterol/HDL Ratio 5 Procalcitonin (0-0.5) ng/ml Nasal Screen MRSA (PCR) (Negative) 03/18/20 03/18/20 03/17/20 Range/Units 04:05 00:57 19:59 WBC 14.03 H (4.8-10.8) K/uL RBC 4.75 (4.7-6.1) M/uL Hgb 15.8 (14.0-18.0) g/dL Hct 46.9 (42-52) % MCV 98.7 (80-100) fL MCH 33.3 (25-34) pg MCHC 33.7 (32-36) g/dL RDW Std Deviation 52.4 H (36.4-46.3) fL RDW Coeff of Crystal 14.5 (11.5-14.5) % Plt Count 245 (130-400) K/uL MPV 10.9 H (7.4-10.4) fL Immature Gran % (Auto) 0.2 % Neut % (Auto) 80.6 % Lymph % (Auto) 11.8 % Stone % (Auto) 7.2 % Eos % (Auto) 0.1 % Baso % (Auto) 0.1 % Immature Gran # (Auto) 0.03 H (0.00-0.02) K/uL Neut # (Auto) 11.31 H (1.4-6.5) K/uL Lymph # (Auto) 1.65 (1.2-3.4) K/uL Stone # (Auto) 1.01 H (0.11-0.59) K/uL Eos # (Auto) 0.01 (0-0.5) K/uL Baso # (Auto) 0.02 (0-0.2) K/uL Activ Coag Time Kaolin (94-140) SECONDS VBG pH (7.36-7.41) VBG pCO2 (38-50) mmHg VBG pO2 mmHg VBG HCO3 mmol/L VBG O2 Saturation % VBG Base Excess mEq/L Barometric Pressure mm/Hg Sodium (136-145) mmol/L Potassium (3.5-5.1) mmol/L Chloride (98-107) mmol/L Carbon Dioxide (21-32) mmol/L Anion Gap (3-11) BUN (7-18) mg/dl Creatinine (0.6-1.4) mg/dl Est Cr Clr Drug Dosing ml/min Est GFR ( Amer) Est GFR (Non-Af Amer) BUN/Creatinine Ratio (10-20) Glucose (70-99) mg/dl POC Glucose 147 H (70-99) mg/dl Estimat Average Glucose mg/dl Hemoglobin A1c (4.5-5.6) % Calcium (8.5-10.1) mg/dl Phosphorus (2.5-4.9) mg/dl Magnesium (1.8-2.4) mg/dl Troponin I 163.000 H* (0-0.045) ng/ml Triglycerides (0-150) mg/dl Cholesterol (0-200) mg/dl LDL Cholesterol, Calc mg/dl VLDL Cholesterol, Calc mg/dl HDL Cholesterol mg/dl Cholesterol/HDL Ratio Procalcitonin (0-0.5) ng/ml Nasal Screen MRSA (PCR) (Negative) 03/17/20 03/17/20 03/17/20 Range/Units 19:00 15:42 15:37 WBC (4.8-10.8) K/uL RBC (4.7-6.1) M/uL Hgb (14.0-18.0) g/dL Hct (42-52) % MCV (80-100) fL MCH (25-34) pg MCHC (32-36) g/dL RDW Std Deviation (36.4-46.3) fL RDW Coeff of Crystal (11.5-14.5) % Plt Count (130-400) K/uL MPV (7.4-10.4) fL Immature Gran % (Auto) % Neut % (Auto) % Lymph % (Auto) % Stone % (Auto) % Eos % (Auto) % Baso % (Auto) % Immature Gran # (Auto) (0.00-0.02) K/uL Neut # (Auto) (1.4-6.5) K/uL Lymph # (Auto) (1.2-3.4) K/uL Stone # (Auto) (0.11-0.59) K/uL Eos # (Auto) (0-0.5) K/uL Baso # (Auto) (0-0.2) K/uL Activ Coag Time Kaolin (94-140) SECONDS VBG pH 7.38 (7.36-7.41) VBG pCO2 40 (38-50) mmHg VBG pO2 59 mmHg VBG HCO3 23 mmol/L VBG O2 Saturation 91.0 % VBG Base Excess -1.6 mEq/L Barometric Pressure 722.8 mm/Hg Sodium (136-145) mmol/L Potassium (3.5-5.1) mmol/L Chloride (98-107) mmol/L Carbon Dioxide (21-32) mmol/L Anion Gap (3-11) BUN (7-18) mg/dl Creatinine (0.6-1.4) mg/dl Est Cr Clr Drug Dosing ml/min Est GFR ( Amer) Est GFR (Non-Af Amer) BUN/Creatinine Ratio (10-20) Glucose (70-99) mg/dl POC Glucose (70-99) mg/dl Estimat Average Glucose mg/dl Hemoglobin A1c (4.5-5.6) % Calcium (8.5-10.1) mg/dl Phosphorus (2.5-4.9) mg/dl Magnesium (1.8-2.4) mg/dl Troponin I > 200.000 H* (0-0.045) ng/ml Triglycerides (0-150) mg/dl Cholesterol (0-200) mg/dl LDL Cholesterol, Calc mg/dl VLDL Cholesterol, Calc mg/dl HDL Cholesterol mg/dl Cholesterol/HDL Ratio Procalcitonin < 0.05 (0-0.5) ng/ml Nasal Screen MRSA (PCR) (Negative) 03/17/20 03/17/20 03/17/20 Range/Units 15:37 12:53 12:30 WBC (4.8-10.8) K/uL RBC (4.7-6.1) M/uL Hgb (14.0-18.0) g/dL Hct (42-52) % MCV (80-100) fL MCH (25-34) pg MCHC (32-36) g/dL RDW Std Deviation (36.4-46.3) fL RDW Coeff of Crystal (11.5-14.5) % Plt Count (130-400) K/uL MPV (7.4-10.4) fL Immature Gran % (Auto) % Neut % (Auto) % Lymph % (Auto) % Stone % (Auto) % Eos % (Auto) % Baso % (Auto) % Immature Gran # (Auto) (0.00-0.02) K/uL Neut # (Auto) (1.4-6.5) K/uL Lymph # (Auto) (1.2-3.4) K/uL Stone # (Auto) (0.11-0.59) K/uL Eos # (Auto) (0-0.5) K/uL Baso # (Auto) (0-0.2) K/uL Activ Coag Time Kaolin (94-140) SECONDS VBG pH (7.36-7.41) VBG pCO2 (38-50) mmHg VBG pO2 mmHg VBG HCO3 mmol/L VBG O2 Saturation % VBG Base Excess mEq/L Barometric Pressure mm/Hg Sodium 140 (136-145) mmol/L Potassium 4.6 (3.5-5.1) mmol/L Chloride 107 (98-107) mmol/L Carbon Dioxide 23 (21-32) mmol/L Anion Gap 10.0 (3-11) BUN 15 (7-18) mg/dl Creatinine 0.92 (0.6-1.4) mg/dl Est Cr Clr Drug Dosing 79.6 ml/min Est GFR ( Amer) 97.3 Est GFR (Non-Af Amer) 84.0 BUN/Creatinine Ratio 16.6 (10-20) Glucose 131 H (70-99) mg/dl POC Glucose 154 H (70-99) mg/dl Estimat Average Glucose mg/dl Hemoglobin A1c (4.5-5.6) % Calcium 8.3 L (8.5-10.1) mg/dl Phosphorus (2.5-4.9) mg/dl Magnesium (1.8-2.4) mg/dl Troponin I > 200.000 H* (0-0.045) ng/ml Triglycerides (0-150) mg/dl Cholesterol (0-200) mg/dl LDL Cholesterol, Calc mg/dl VLDL Cholesterol, Calc mg/dl HDL Cholesterol mg/dl Cholesterol/HDL Ratio Procalcitonin (0-0.5) ng/ml Nasal Screen MRSA (PCR) Negative (Negative) 03/17/20 03/17/20 03/17/20 Range/Units 11:23 10:55 10:37 WBC (4.8-10.8) K/uL RBC (4.7-6.1) M/uL Hgb (14.0-18.0) g/dL Hct (42-52) % MCV (80-100) fL MCH (25-34) pg MCHC (32-36) g/dL RDW Std Deviation (36.4-46.3) fL RDW Coeff of Crystal (11.5-14.5) % Plt Count (130-400) K/uL MPV (7.4-10.4) fL Immature Gran % (Auto) % Neut % (Auto) % Lymph % (Auto) % Stone % (Auto) % Eos % (Auto) % Baso % (Auto) % Immature Gran # (Auto) (0.00-0.02) K/uL Neut # (Auto) (1.4-6.5) K/uL Lymph # (Auto) (1.2-3.4) K/uL Stone # (Auto) (0.11-0.59) K/uL Eos # (Auto) (0-0.5) K/uL Baso # (Auto) (0-0.2) K/uL Activ Coag Time Kaolin 433 H 241 H 208 H (94-140) SECONDS VBG pH (7.36-7.41) VBG pCO2 (38-50) mmHg VBG pO2 mmHg VBG HCO3 mmol/L VBG O2 Saturation % VBG Base Excess mEq/L Barometric Pressure mm/Hg Sodium (136-145) mmol/L Potassium (3.5-5.1) mmol/L Chloride (98-107) mmol/L Carbon Dioxide (21-32) mmol/L Anion Gap (3-11) BUN (7-18) mg/dl Creatinine (0.6-1.4) mg/dl Est Cr Clr Drug Dosing ml/min Est GFR ( Amer) Est GFR (Non-Af Amer) BUN/Creatinine Ratio (10-20) Glucose (70-99) mg/dl POC Glucose (70-99) mg/dl Estimat Average Glucose mg/dl Hemoglobin A1c (4.5-5.6) % Calcium (8.5-10.1) mg/dl Phosphorus (2.5-4.9) mg/dl Magnesium (1.8-2.4) mg/dl Troponin I (0-0.045) ng/ml Triglycerides (0-150) mg/dl Cholesterol (0-200) mg/dl LDL Cholesterol, Calc mg/dl VLDL Cholesterol, Calc mg/dl HDL Cholesterol mg/dl Cholesterol/HDL Ratio Procalcitonin (0-0.5) ng/ml Nasal Screen MRSA (PCR) (Negative) Coding Level of Care Code 65689 Subseq Hosp Care Lvl 3 Diagnoses Admitted to intensive care unit Z78.9 STEMI (ST elevation myocardial infarction) I21.3 S/P PTCA (percutaneous transluminal coronary angioplasty) Z98.61 S/P drug eluting coronary stent placement Z95.5 CHF (congestive heart failure) I50.9 Ischemic cardiomyopathy I25.5 Hypoxia R09.02 Obesity E66.9 Dyslipidemia E78.5
--- NOTE | 2020-03-18 12:53 | Hospitalist Progress Note ---
Date of Service March 18, 2020 Assessment & Plan (1) STEMI (ST elevation myocardial infarction): ST ELEVATION MYOCARDIAL INFRACTION INVOLVING LEFT ANTERIOR DESCENDING (LAD) CORONARY ARTERY AND 1ST DIAGONAL -70 y/o M with PMH dyslipidemia, obesity presented to [facility] [employer] lab[employer] [facility] [place] after found to have ST-elevation Myocardial Infarction on 03/17/2020 (2) S/P cardiac cath: Acute Respiratory Failure with Hypoxia Cough, Wheezing -on 03/17/2020 Patient had PCI with Drug Eluting stents to LAD and bifurcating diagonal proximal to LAD -during the 03/17/2020 procedure, patient had hypotension and was given IVF and then was noted to be requiring increased oxygen and on 15L non-rebreather. when returned to ICU, patient then with coughing and wheezing. Patient was given diuretics and nebulizer treatment. was also given dose of ceftriaxone and Doxycycline but this was then discontinued as by ICU team as procalcitonin negative -03/18/2020: staged PCI earlymid RCA with single drug-eluting stent, currently on 4 liters/min oxygen -continue cardiac medications of aspirin 81 mg daily, Ticagrelor 90 mg BID, metoprolol 25 mg BID, Losartan 25 mg daily, atorvastatin 80 mg qHS (3) Dyslipidemia: -started on atorvastatin 80mg qHS as inpatient, continue (4) Obesity: with BMI of 35 -management of cardiac health as above Hypomagnesemia -serum magnesium 1.7 on 03/18/2020, agree with ICU physician orders of daily oral magnesium supplementation DVT Prophylaxis: Lovenox subcutaneous per cardiology Full Code Follows with Dr Ford for routine care Admission and Anticipated Discharge Date Admission Date: March 17, 2020 Subjective Patient returns from staged PCI earlymid RCA with single drug-eluting stent. Patient is in the ICU. Has TR band on right wrist. Breathing on nasal cannula oxygen. No acute distress. No wheezing. breathing comfortably. no chest pain. no palpitations. no abdominal pain. no dizziness. no headache. patient denies other symptoms Review of Systems Review of Systems: All systems reviewed & are unremarkable except as noted in Subjective Physical Exam Constitutional: comfortable Eyes: PERRL, conjunctivae normal, anicteric sclerae EOM intact bilaterally ENMT: external ear and nose normal, oropharynx normal Neck: normal visual inspection Respiratory: normal respiratory effort Cardiovascular: Rate/Rhythm: regular rate and regular rhythm Gastrointestinal (Abdomen): Inspection/Auscultation: abdomen normal to inspection Percussion/Palpation: abdomen soft Musculoskeletal: Head/Neck/Chest: normocephalic right wrist with TR band Neurologic: PERRL, EOMI, accommodation nl, no face palsy, no dysarthria Psychiatric: A+Ox3, euthymic affect Results & Data Results & Data ([facility]) Vital Signs (Past 12 Hours) Vital Signs Temp Pulse Pulse Resp BP BP Pulse Ox 03/18/20 12:00 98 H 22 93 03/18/20 11:48 99 H 23 117/74 90 03/18/20 11:45 100 H 23 92 03/18/20 11:30 103 H 22 91 03/18/20 11:19 37.1 C 03/18/20 11:18 103 H 18 130/81 92 03/18/20 11:15 107 H 34 H 03/18/20 11:03 97 H 22 121/79 93 03/18/20 11:00 97 H 22 93 03/18/20 10:48 99 H 22 128/80 93 03/18/20 10:45 102 H 23 93 03/18/20 10:33 103 H 22 122/85 95 03/18/20 10:30 103 H 24 93 03/18/20 10:18 135/91 93 03/18/20 10:03 97 H 24 117/84 93 03/18/20 10:00 97 H 24 93 03/18/20 09:48 96 H 26 H 117/77 91 03/18/20 09:43 97 H 24 128/68 03/18/20 09:42 97 H 24 03/18/20 08:00 36.9 C 96 H 100 H 22 118/84 91 03/18/20 07:51 97 H 24 115/77 91 03/18/20 07:30 96 H 24 91 03/18/20 07:00 95 H 22 92 03/18/20 06:51 97 H 24 118/84 90 03/18/20 06:30 96 H 24 90 03/18/20 05:51 98 H 26 H 116/74 90 03/18/20 04:51 99 H 29 H 116/75 90 03/18/20 03:50 37 C 106 H 16 125/81 91 03/18/20 03:31 111 H 21 127/87 92 03/18/20 03:08 98 H 22 91 03/18/20 02:51 101 H 24 106/69 89 L 03/18/20 01:51 95 H 26 H 105/70 91 03/18/20 00:50 94 H 25 H 108/71 92
[2020-03-18] MEDS: ENOXAPARIN INJ 40 MG/0.4 ML SYR SQ SCH (16:54)
[2020-03-18] MEDS: INSULIN ASPART 100 UNITS/ML 3 ML PEN SC SCH ×2 (16:55→21:14)
[2020-03-18] MEDS: ATORVASTATIN 40 MG TAB PO SCH (22:24)
[2020-03-18] MEDS: MAGNESIUM OXIDE 400 MG TAB PO SCH (22:25)
[2020-03-19 05:10] LABS: Basophils # (auto) 0.02 K/uL (0-0.2); Basophils % (auto) 0.2 %; Eosinophils # (auto) 0.07 K/uL (0-0.5); Eosinophils % (auto) 0.6 %; Hematocrit (blood only) 44.2 % (42-52); Immature Granulocytes # (auto) 0.04 K/uL (0.00-0.02); Immature Granulocytes % (auto) 0.3 %; Lymphocytes # (auto) 2.19 K/uL (1.2-3.4); Lymphocytes % (auto) 18.8 %; Mean Corpuscular Hemoglobin 33.7 pg (25-34); Mean Corpuscular Hgb Conc 33.9 g/dL (32-36); Mean Corpuscular Volume 99.3 fL (80-100); Mean Platelet Volume 10.9 fL (7.4-10.4); Monocytes # (auto) 1.06 K/uL (0.11-0.59); Monocytes % (auto) 9.1 %; Neutrophils # (auto) 8.26 K/uL (1.4-6.5); Platelet Count 224 K/uL (130-400); RDW Coefficient of Variation 14.6 % (11.5-14.5); RDW Standard Deviation 52.7 fL (36.4-46.3); Red Blood Count 4.45 M/uL (4.7-6.1); White Blood Count 11.64 K/uL (4.8-10.8)
[2020-03-19 05:42] LABS: Albumin Level 2.8 gm/dl (3.4-5.0); BUN Creatinine Ratio 27.3 (10-20); Calcium 8.2 mg/dl (8.5-10.1); Creatinine Clr Calc Pharmacy 84.8 ml/min; Est GFR (African American) 101.8; Est GFR (Non-African American) 87.9
[2020-03-19 05:45] LABS: Albumin Globulin Ratio 0.8 (0.9-2); Bilirubin,Total 0.9 mg/dl (0.2-1); Globulin 3.5 gm/dl (2.5-4.0); Phosphorus 2.5 mg/dl (2.5-4.9); Total Protein 6.3 gm/dl (6.4-8.2)
[2020-03-19] MEDS: METOPROLOL TARTRATE 25 MG TAB PO SCH ×2 (07:12→20:27)
[2020-03-19] MEDS: TICAGRELOR 90 MG TAB PO SCH ×2 (07:12→20:27)
[2020-03-19] MEDS: ASPIRIN 81 MG ECTAB PO SCH (07:12)
[2020-03-19] MEDS: PANTOprazole 40 MG TAB PO SCH (07:12)
[2020-03-19] MEDS: LOSARTAN POTASSIUM 25 MG TAB PO SCH (07:12)
[2020-03-19] MEDS: INSULIN ASPART 100 UNITS/ML 3 ML PEN SC SCH ×4 (08:15→20:27)
--- NOTE | 2020-03-19 08:52 | Critical Care Progress Note ---
Date of Service March 19, 2020 Assessment & Plan (1) Admitted to intensive care unit: Reason Critically Ill: 70-year-old male with acute STEMI s/p PTCA w/ ELLIOTT x1 to the LAD and x1 to the Diagonal. Noted to develop pulmonary edema intraprocedurally responsive to IV Lasix likely 2/2 ischemic cardiomyopathy w/ EF ~25%. Requiring close hemodynamic monitoring s/p intervention. NEURO - * CAM ICU: NEGATIVE * Chest pain: Acetaminophen, Morphine as needed. CARDIAC/VASCULAR - * Acute STEMI s/p PTCA w/ ELLIOTT x1 to LAD and x1 to Diagonal: * Coronary artery disease -Dual antiplatelet therapy -High-dose statin -Tolerating metoprolol RESPIRATORY - * Respiratory distress w/ hypoxia: Improved * 2/2 pulmonary edema w/ reduced EF. -Significant diuresis * Reactive airway disease * Slight apical wheezing noted on exam. Albuterol inhaler PRN. GI/NUTRITION - Transaminitis: Follow-up as outpatient * AHA Diet * Prophylaxis: Protonix Obesity: BMI 34.9 -Encourage lifestyle changes RENAL/LYTES - * No significant electrolyte derangements. - * Strict I&Os. ENDO - * No h/o DM * AM Hgb A1c * BSGs per unit protocol. ISS --> gtt per unit policy. HEME - * Lovenox for DVT prophylaxis ID - * Monitor fever curve. * PCT not elevated. LINES/IV ACCESS - * PIVs x2 DVT PROPHYLAXIS - * SCDs * Lovenox Disposition: Stable for downgrade to telemetry status (2) STEMI (ST elevation myocardial infarction): (3) S/P PTCA (percutaneous transluminal coronary angioplasty): (4) S/P drug eluting coronary stent placement: (5) CHF (congestive heart failure): (6) Ischemic cardiomyopathy: (7) Hypoxia: (8) Obesity: (9) Dyslipidemia: Admission and Anticipated Discharge Date Admission Date: March 17, 2020 Subjective No overnight events, no chest pain Review of Systems Review of Systems: No chest pain Physical Exam Physical Exam: General: Alert. nontoxic. Skin: Warm, dry, Head: Atraumatic Ears, nose, mouth and throat: airway patent Cardiovascular: Normal peripheral perfusion Respiratory: no respiratory distress Gastrointestinal: Non distended Musculoskeletal: No deformity Results & Data Results & Data ([facility]) Vital Signs (Past 12 Hours) Vital Signs Temp Pulse Resp BP Pulse Ox 03/19/20 04:54 96 H 28 H 114/80 92 03/19/20 03:55 94 H 20 111/77 95 03/19/20 02:54 88 23 113/71 94 03/19/20 02:00 87 26 H 94 03/19/20 01:54 87 26 H 110/74 94 03/19/20 01:00 87 27 H 94 03/19/20 00:54 83 27 H 101/75 93 03/18/20 23:54 36.9 C 82 28 H 108/74 93 03/18/20 22:54 94 H 48 H 116/79 93 03/18/20 21:54 102 H 26 H 124/78 95 03/18/20 20:54 101 H 36 H 126/72 97 Laboratory Results 03/19/20 03/19/20 03/18/20 Range/Units 04:07 04:07 20:32 WBC 11.64 H (4.8-10.8) K/uL RBC 4.45 L (4.7-6.1) M/uL Hgb 15.0 (14.0-18.0) g/dL Hct 44.2 (42-52) % MCV 99.3 (80-100) fL MCH 33.7 (25-34) pg MCHC 33.9 (32-36) g/dL RDW Std Deviation 52.7 H (36.4-46.3) fL RDW Coeff of Crystal 14.6 H (11.5-14.5) % Plt Count 224 (130-400) K/uL MPV 10.9 H (7.4-10.4) fL Immature Gran % (Auto) 0.3 % Neut % (Auto) 71.0 % Lymph % (Auto) 18.8 % Becker % (Auto) 9.1 % Eos % (Auto) 0.6 % Baso % (Auto) 0.2 % Immature Gran # (Auto) 0.04 H (0.00-0.02) K/uL Neut # (Auto) 8.26 H (1.4-6.5) K/uL Lymph # (Auto) 2.19 (1.2-3.4) K/uL Becker # (Auto) 1.06 H (0.11-0.59) K/uL Eos # (Auto) 0.07 (0-0.5) K/uL Baso # (Auto) 0.02 (0-0.2) K/uL Activ Coag Time Kaolin (94-140) SECONDS Sodium 138 (136-145) mmol/L Potassium 4.0 (3.5-5.1) mmol/L Chloride 104 (98-107) mmol/L Carbon Dioxide 28 (21-32) mmol/L Anion Gap 6.0 (3-11) BUN 23 H (7-18) mg/dl Creatinine 0.86 (0.6-1.4) mg/dl Est Cr Clr Drug Dosing 84.8 ml/min Est GFR ( Amer) 101.8 Est GFR (Non-Af Amer) 87.9 BUN/Creatinine Ratio 27.3 H (10-20) Glucose 121 H (70-99) mg/dl POC Glucose 118 H (70-99) mg/dl Calcium 8.2 L (8.5-10.1) mg/dl Phosphorus 2.5 (2.5-4.9) mg/dl Magnesium 2.0 (1.8-2.4) mg/dl Total Bilirubin 0.9 (0.2-1) mg/dl AST 188 H (15-37) U/L ALT 84 H (12-78) U/L Alkaline Phosphatase 55 (45-117) U/L Total Protein 6.3 L (6.4-8.2) gm/dl Albumin 2.8 L (3.4-5.0) gm/dl Globulin 3.5 (2.5-4.0) gm/dl Albumin/Globulin Ratio 0.8 L (0.9-2) 03/18/20 03/18/20 Range/Units 15:41 09:10 WBC (4.8-10.8) K/uL RBC (4.7-6.1) M/uL Hgb (14.0-18.0) g/dL Hct (42-52) % MCV (80-100) fL MCH (25-34) pg MCHC (32-36) g/dL RDW Std Deviation (36.4-46.3) fL RDW Coeff of Crystal (11.5-14.5) % Plt Count (130-400) K/uL MPV (7.4-10.4) fL Immature Gran % (Auto) % Neut % (Auto) % Lymph % (Auto) % Becker % (Auto) % Eos % (Auto) % Baso % (Auto) % Immature Gran # (Auto) (0.00-0.02) K/uL Neut # (Auto) (1.4-6.5) K/uL Lymph # (Auto) (1.2-3.4) K/uL Becker # (Auto) (0.11-0.59) K/uL Eos # (Auto) (0-0.5) K/uL Baso # (Auto) (0-0.2) K/uL Activ Coag Time Kaolin 246 H (94-140) SECONDS Sodium (136-145) mmol/L Potassium (3.5-5.1) mmol/L Chloride (98-107) mmol/L Carbon Dioxide (21-32) mmol/L Anion Gap (3-11) BUN (7-18) mg/dl Creatinine (0.6-1.4) mg/dl Est Cr Clr Drug Dosing ml/min Est GFR ( Amer) Est GFR (Non-Af Amer) BUN/Creatinine Ratio (10-20) Glucose (70-99) mg/dl POC Glucose 149 H (70-99) mg/dl Calcium (8.5-10.1) mg/dl Phosphorus (2.5-4.9) mg/dl Magnesium (1.8-2.4) mg/dl Total Bilirubin (0.2-1) mg/dl AST (15-37) U/L ALT (12-78) U/L Alkaline Phosphatase (45-117) U/L Total Protein (6.4-8.2) gm/dl Albumin (3.4-5.0) gm/dl Globulin (2.5-4.0) gm/dl Albumin/Globulin Ratio (0.9-2) Coding Level of Care Code 20003 Subseq Hosp Care Lvl 1 Diagnoses Admitted to intensive care unit Z78.9 STEMI (ST elevation myocardial infarction) I21.3 S/P PTCA (percutaneous transluminal coronary angioplasty) Z98.61 S/P drug eluting coronary stent placement Z95.5 CHF (congestive heart failure) I50.9 Ischemic cardiomyopathy I25.5 Hypoxia R09.02 Obesity E66.9 Dyslipidemia E78.5
--- NOTE | 2020-03-19 10:45 | XCELERA ---
[id number]
[2020-03-19] MEDS: ENOXAPARIN INJ 40 MG/0.4 ML SYR SQ SCH (12:06)
--- NOTE | 2020-03-19 12:41 | Cardiology Progress Note ---
Date of Service March 19, 2020 Assessment & Plan (1) STEMI (ST elevation myocardial infarction): --Post primary PCI with ELLIOTT to LAD, bifurcating diagonal 2. Ischemic cardiomyopathy/acute systolic heart failureEF 25 to 30% 3. Residual severe RCA disease -- post PCI with ELLIOTT to mid RCA 4. Dyslipidemia Chest pain free. Hemodynamically and electrically stable. Well perfused. Improved congestion today after negative another 1.4 L yesterday Renal function stable. No access site complications. Reviewed repeat echo - EF still 30-35%. No apparent LV thrombus. Continue DAPT with aspirin, ticagrelor Continue current metoprolol and losartan Will add spironolactone 25 mg today Continue high intensity statin Ok to transfer to telemetry today. Up walking halls later. -- Plan for LifeVest on discharge. -- Possible home tomorrow or saturday. Appreciate ICU and hospital medicine care. Admission and Anticipated Discharge Date Admission Date: March 17, 2020 Subjective No additional chest pain. Feeling well today. Very brief episodes of dyspnea. Wheezing improved. No significant pain at right radial artery access site. Tele reviewed -- sinus 80-90s, no arrhythmia. Review of Systems Review of Systems: All systems reviewed & are unremarkable except as noted in HPI & below Physical Exam Physical Exam: General: comfortable Eyes: Sclerae anicteric HENT: Oropharynx clear mucous membranes moist Lungs: lungs clear Cardiac: regular, no murmur Vascular: Right radial artery access site with mild ecchymosis, no hematoma. Distal pulse and sensation intact. Abdomen: Soft, nontender, nondistended, positive bowel sounds. Extremities: Well perfused Skin: No rashes or lesions. Neuro: Nonfocal Psych: Alert orient x3, normal affect and mood Results & Data ([facility]) Vital Signs (Past 12 Hours) Vital Signs Temp Pulse Resp BP Pulse Ox 03/19/20 09:00 84 26 H 94 03/19/20 08:55 82 21 93/58 L 93 03/19/20 08:01 86 31 H 89 L 03/19/20 07:55 98.2 F 89 25 H 105/67 89 L 03/19/20 07:21 96 H 25 H 111/72 90 03/19/20 07:00 89 49 H 94 03/19/20 06:54 90 26 H 113/83 94 03/19/20 06:45 94 H 24 94 03/19/20 04:54 96 H 28 H 114/80 92 03/19/20 03:55 94 H 20 111/77 95 03/19/20 02:54 88 23 113/71 94 03/19/20 02:00 87 26 H 94 03/19/20 01:54 87 26 H 110/74 94 03/19/20 01:00 87 27 H 94 03/19/20 00:54 83 27 H 101/75 93 PG Care Time/CCT Total # of Minutes Spent Total Time Spent with Patient: Total time spent is greater than 50% in coordination of care (as documented) at patient's floor/unit and/or counseling patient: Coding Level of Care Code 98422 Subseq Hosp Care Lvl 3 Diagnoses STEMI (ST elevation myocardial infarction) I21.3
[2020-03-19] MEDS: SPIRONOLACTONE 25 MG TAB PO SCH (12:49)
--- NOTE | 2020-03-19 13:22 | Hospitalist Progress Note ---
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 when returned to ICU, patient then with coughing and wheezing. Patient was given diuretics and nebulizer treatment. was also given dose of ceftriaxone and Doxycycline but this was then discontinued as by ICU team as procalcitonin negative -03/18/2020: staged PCI earlymid RCA with single drug-eluting stent, on 4 liters/min oxygen -03/19/2020: on 2/liters/min nasal cannula -continue cardiac medications of aspirin 81 mg daily, Ticagrelor 90 mg BID, metoprolol 25 mg BID, Losartan 25 mg daily, atorvastatin 80 mg qHS. spirolactone started by cardiology service. Cardiology Dr. Tran discussed with patient about arranging LifeVest (3) Dyslipidemia: -started on atorvastatin 80mg qHS as inpatient, continue (4) Obesity: with BMI of 35 -management of cardiac health as above Hypomagnesemia -serum magnesium 1.7 on 03/18/2020, agree with ICU physician orders of daily oral magnesium supplementation -serum magnesium is 2 on 03/19/2020 DVT Prophylaxis: Lovenox subcutaneous per cardiology Full Code Follows with Dr Ford for routine care Admission and Anticipated Discharge Date Admission Date: March 17, 2020 Subjective Patient seen and examined at bedside. He remains on nasal cannula oxygen. No acute chest pain. No palpitations. no abdomen pain. no dizziness. no headache. Patient denies other active symptoms. He was pleased after talking with ca rdiologist Dr. Tran today about further cardiac care and plans Review of Systems Review of Systems: All systems reviewed & are unremarkable except as noted in Subjective Physical Exam Constitutional: comfortable Eyes: PERRL, conjunctivae normal, anicteric sclerae EOM intact bilaterally ENMT: external ear and nose normal, oropharynx normal Neck: normal visual inspection Respiratory: normal respiratory effort Cardiovascular: Rate/Rhythm: regular rate and regular rhythm Gastrointestinal (Abdomen): Inspection/Auscultation: abdomen normal to inspection Percussion/Palpation: abdomen soft Musculoskeletal: Head/Neck/Chest: normocephalic Neurologic: PERRL, EOMI, accommodation nl, no face palsy, no dysarthria Psychiatric: A+Ox3, euthymic affect Results & Data Results & Data ([facility]) Vital Signs (Past 12 Hours) Vital Signs Temp Pulse Resp BP Pulse Ox 03/19/20 13:00 98 H 23 03/19/20 12:39 37.0 C 82 19 103/62 94 03/19/20 12:00 82 35 H 94 03/19/20 11:55 82 27 H 106/57 L 93 03/19/20 11:00 78 21 94 03/19/20 10:54 79 22 93/64 L 93 03/19/20 10:00 80 23 93 03/19/20 09:54 80 21 97/64 L 94 03/19/20 09:00 84 26 H 94 03/19/20 08:55 82 21 93/58 L 93 03/19/20 08:01 86 31 H 89 L 03/19/20 07:55 36.8 C 89 25 H 105/67 89 L 03/19/20 07:21 96 H 25 H 111/72 90 03/19/20 07:00 89 49 H 94 03/19/20 06:54 90 26 H 113/83 94 03/19/20 06:45 94 H 24 94 03/19/20 04:54 96 H 28 H 114/80 92 03/19/20 03:55 94 H 20 111/77 95 03/19/20 02:54 88 23 113/71 94 03/19/20 02:00 87 26 H 94 03/19/20 01:54 87 26 H 110/74 94
[2020-03-19] MEDS: MAGNESIUM OXIDE 400 MG TAB PO SCH (20:26)
[2020-03-19] MEDS: ATORVASTATIN 40 MG TAB PO SCH (20:27)
[2020-03-20 04:44] LABS: BUN Creatinine Ratio 30.9 (10-20); Calcium 8.2 mg/dl (8.5-10.1); Creatinine Clr Calc Pharmacy 81.9 ml/min; Est GFR (African American) 100.4; Est GFR (Non-African American) 86.6; Potassium 3.8 mmol/L (3.5-5.1)
[2020-03-20] MEDS: INSULIN ASPART 100 UNITS/ML 3 ML PEN SC SCH ×4 (08:00→21:25)
[2020-03-20] MEDS: ASPIRIN 81 MG ECTAB PO SCH (08:01)
[2020-03-20] MEDS: LOSARTAN POTASSIUM 25 MG TAB PO SCH (08:01)
[2020-03-20] MEDS: METOPROLOL TARTRATE 25 MG TAB PO SCH (08:02)
[2020-03-20] MEDS: PANTOprazole 40 MG TAB PO SCH (08:02)
[2020-03-20] MEDS: TICAGRELOR 90 MG TAB PO SCH ×2 (08:02→20:49)
[2020-03-20] MEDS: ENOXAPARIN INJ 40 MG/0.4 ML SYR SQ SCH (08:02)
[2020-03-20] MEDS: SPIRONOLACTONE 25 MG TAB PO SCH (08:02)
[2020-03-20] MEDS ORDERED: METOPROLOL TARTRATE 25 MG TAB PO STA (09:24)
--- NOTE | 2020-03-20 09:26 | Cardiology Progress Note ---
Date of Service March 20, 2020 Assessment & Plan (1) STEMI (ST elevation myocardial infarction): --Post primary PCI with ELLIOTT to LAD, bifurcating diagonal 2. Ischemic cardiomyopathy/acute systolic heart failureEF 25 to 30% initially, 30 to 35% on follow-up echocardiography 3. Residual severe RCA disease -- post PCI with ELLIOTT to mid RCA 4. Dyslipidemia He is doing well post TX and intervention. He is feeling better and I think is stable for discharge. His heart rate remains somewhat elevated I am increasing his beta-yolanda today, I am increasing him from 25 mg twice daily to 50 mg twice daily of metoprolol tartrate. I gave an additional 25 mg this morning, if his heart rate and blood pressure remain acceptable after an hour or so he can go home. I have also filled out paperwork for a LifeVest. Hopefully we can get that fitted today. We will make sure he has follow-up in the office. Admission and Anticipated Discharge Date Admission Date: March 17, 2020 Subjective He is feeling well today, he tells me that he is feeling better every day. His breathing is better and he is no chest discomfort. Physical Exam Physical Exam: Constitutional: Alert, cooperative and in no distress. Pulmonary: Clear to auscultation bilaterally. Cardiac: Regular rhythm with no murmur, gallop or rub. Abdomen: Soft, nontender with normal bowel sounds. Extremities: No edema. Skin: No rash, ecchymoses or petechiae. Results & Data ([facility]) Vital Signs (Past 12 Hours) Vital Signs Temp Pulse Pulse Resp BP BP Pulse Ox 03/20/20 08:09 36.8 C 91 H 29 H 105/69 92 03/20/20 08:00 91 H 21 03/20/20 07:00 84 28 H 03/20/20 06:45 84 26 H 03/20/20 04:12 36.8 C 85 27 H 110/70 95 03/19/20 23:55 37.0 C 95 H 23 98/58 L 94 03/19/20 23:35 86 Laboratory Results Comprehensive Metabolic Panel 03/20/20 Range/Units 04:03 Sodium 136 (136-145) mmol/L Potassium 3.8 (3.5-5.1) mmol/L Chloride 104 (98-107) mmol/L Carbon Dioxide 26 (21-32) mmol/L BUN 27 H (7-18) mg/dl Creatinine 0.89 (0.6-1.4) mg/dl Glucose 117 H (70-99) mg/dl Calcium 8.2 L (8.5-10.1) mg/dl Intake and Output 03/19/20 03/20/20 03/20/20 22:59 06:59 14:59 Intake Total 120 / 1270 400 / 1270 Output Total 550 / 950 400 / 950 Balance -430 / 320 0 / 320 Intake: Oral 120 / 1270 400 / 1270 Output: Urine 550 / 950 400 / 950 Other: Weight 94.3 kg Diagnostic Findings Telemetry: Sinus rhythm, heart rate in the 90s generally. No significant ventricular ectopy. Echocardiography: Post TX his ejection fraction remains 30 to 35%. PG Care Time/CCT Total # of Minutes Spent Total Time Spent with Patient: Total time spent is greater than 50% in coordination of care (as documented) at patient's floor/unit and/or counseling patient: Coding Level of Care Code 29279 Subseq Hosp Care Lvl 3 Diagnoses STEMI (ST elevation myocardial infarction) I21.3
--- NOTE | 2020-03-20 10:11 | Hospitalist Progress Note ---
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 when returned to ICU, patient then with coughing and wheezing. Patient was given diuretics and nebulizer treatment. was also given dose of ceftriaxone and Doxycycline but this was then discontinued as by ICU team as procalcitonin negative -03/18/2020: staged PCI earlymid RCA with single drug-eluting stent, on 4 liters/min oxygen -03/19/2020: on 2/liters/min nasal cannula. -03/20/2020: Patient breathing on room air. He reports that intermittently, he feels subjective shortness of breath. when this occurred with hospitalist in the room, patient had oxygen saturation checked and was doing okay at 93%. Generally patient does not feel short of breath. No chest pain. No palpitations. no abdominal pain. no headache. no dizziness. no nausea. no vomiting continue cardiac medications of aspirin 81 mg daily, Ticagrelor 90 mg BID, Losartan 25 mg daily, atorvastatin 80 mg qHS, spirolactone, metoprolol has been increased from 25 mg BID to 50 mg BID as per cardiology service. Patient awaiting LifeVest (3) Dyslipidemia: -started on atorvastatin 80mg qHS as inpatient, continue (4) Obesity: with BMI of 35 -management of cardiac health as above Hypomagnesemia -serum magnesium 1.7 on 03/18/2020, agree with ICU physician orders oral magnesium supplementation -serum magnesium is 2 on 03/19/2020 DVT Prophylaxis: Lovenox subcutaneous daily while as inpatient as per cardiology Full Code Follows with Dr Ford for routine care Admission and Anticipated Discharge Date Admission Date: March 17, 2020 Subjective Patient breathing on room air. He reports that intermittently, he feels subjective shortness of breath. when this occurred with hospitalist in the room, patient had oxygen saturation checked and was doing okay at 93%. Generally patient does not feel short of breath. No chest pain. No palpitations. no abdominal pain. no headache. no dizziness. no nausea. no vomiting Review of Systems Review of Systems: All systems reviewed & are unremarkable except as noted in Subjective Physical Exam Constitutional: comfortable Eyes: PERRL, conjunctivae normal, anicteric sclerae EOM intact bilaterally ENMT: external ear and nose normal, oropharynx normal Neck: normal visual inspection Respiratory: normal respiratory effort Cardiovascular: Rate/Rhythm: regular rate and regular rhythm Gastrointestinal (Abdomen): Inspection/Auscultation: abdomen normal to inspection Percussion/Palpation: abdomen soft Musculoskeletal: Head/Neck/Chest: normocephalic Neurologic: PERRL, EOMI, accommodation nl, no face palsy, no dysarthria Psychiatric: A+Ox3, euthymic affect Results & Data Results & Data ([facility]) Vital Signs (Past 12 Hours) Vital Signs Temp Pulse Pulse Resp BP BP Pulse Ox 03/20/20 08:09 36.8 C 91 H 29 H 105/69 92 03/20/20 08:00 91 H 21 03/20/20 07:00 84 28 H 03/20/20 06:45 84 26 H 03/20/20 04:12 36.8 C 85 27 H 110/70 95 03/19/20 23:55 37.0 C 95 H 23 98/58 L 94 03/19/20 23:35 86
--- NOTE | 2020-03-20 11:09 | XRay Report ---
XR chest 2V PA/lateral HISTORY: intermittent shortness of breath COMPARISON: Chest 03/17/2020. FINDINGS: Interval improvement in the bilateral perihilar airspace opacities and interstitial thicken ing. No pneumothorax. Trace bilateral pleural effusions. The heart is normal in size. No new focal shantanu ng consolidations. IMPRESSION: Interval improvement in the bilateral perihilar airspace opacities and interstitial thickening with d evelopment of trace bilateral pleural effusions. This favors resolving pulmonary edema. An atypical p neumonitis could also have a similar appearance. ACT 112: Negative or not required by law. Electronically signed by: Ez Jackson M.D. 03/20/2020 11:08 AM
[2020-03-20] MEDS: ATORVASTATIN 40 MG TAB PO SCH (20:50)
[2020-03-20] MEDS: METOPROLOL TARTRATE 50 MG TAB PO SCH (20:50)
[2020-03-21] MEDS ORDERED: LORazepam 0.5 MG TAB PO STA (01:06)
[2020-03-21] MEDS ORDERED: LORazepam 0.5 MG TAB ONE (01:14)
[2020-03-21 06:00] LABS: Basophils # (auto) 0.02 K/uL (0-0.2); Basophils % (auto) 0.3 %; Eosinophils # (auto) 0.17 K/uL (0-0.5); Eosinophils % (auto) 2.3 %; Hematocrit (blood only) 39.6 % (42-52); Hemoglobin 13.4 g/dL (14.0-18.0); Immature Granulocytes # (auto) 0.03 K/uL (0.00-0.02); Immature Granulocytes % (auto) 0.4 %; Lymphocytes # (auto) 1.54 K/uL (1.2-3.4); Lymphocytes % (auto) 20.4 %; Mean Corpuscular Hemoglobin 32.8 pg (25-34); Mean Corpuscular Hgb Conc 33.8 g/dL (32-36); Mean Corpuscular Volume 97.1 fL (80-100); Neutrophils # (auto) 5.18 K/uL (1.4-6.5); Neutrophils % (auto) 68.6 %; Platelet Count 210 K/uL (130-400); RDW Coefficient of Variation 13.8 % (11.5-14.5); RDW Standard Deviation 49.6 fL (36.4-46.3); Red Blood Count 4.08 M/uL (4.7-6.1); White Blood Count 7.54 K/uL (4.8-10.8)
[2020-03-21 06:37] LABS: BUN Creatinine Ratio 30.4 (10-20); Calcium 8.6 mg/dl (8.5-10.1); Est GFR (African American) 106.6; Est GFR (Non-African American) 91.9; Magnesium 2.1 mg/dl (1.8-2.4); Potassium 3.7 mmol/L (3.5-5.1)
[2020-03-21] MEDS: INSULIN ASPART 100 UNITS/ML 3 ML PEN SC SCH ×2 (08:11→12:11)
[2020-03-21] MEDS: METOPROLOL TARTRATE 50 MG TAB PO SCH (08:17)
[2020-03-21] MEDS: TICAGRELOR 90 MG TAB PO SCH (08:17)
[2020-03-21] MEDS: SPIRONOLACTONE 25 MG TAB PO SCH (08:18)
[2020-03-21] MEDS: ASPIRIN 81 MG ECTAB PO SCH (08:18)
[2020-03-21] MEDS: PANTOprazole 40 MG TAB PO SCH (08:18)
[2020-03-21] MEDS: LOSARTAN POTASSIUM 25 MG TAB PO SCH (08:18)
[2020-03-21] MEDS: ENOXAPARIN INJ 40 MG/0.4 ML SYR SQ SCH (09:19)
--- NOTE | 2020-03-21 09:27 | Hospitalist Progress Note ---
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 when returned to ICU, patient then with coughing and wheezing. Patient was given diuretics and nebulizer treatment. was also given dose of ceftriaxone and Doxycycline but this was then discontinued as by ICU team as procalcitonin nega tive -03/18/2020: staged PCI earlymid RCA with single drug-eluting stent, on 4 liters/min oxygen -03/19/2020: on 2/liters/min nasal cannula. -03/20/2020: Patient breathing on room air. He reports that intermittently, he feels subjective shortness of breath. when this occurred with hospitalist in the room, patient had oxygen saturation checked and was doing okay at 93%. Generally patient does not feel short of breath. No chest pain. No palpitations. no abdominal pain. no headache. no dizziness. no nausea. no vomiting continue cardiac medications of aspirin 81 mg daily, Ticagrelor 90 mg BID, Losartan 25 mg daily, atorvastatin 80 mg qHS, spirolactone, metoprolol has been increased from 25 mg BID to 50 mg BID as per cardiology service. 03/21/2020: Patient sitting on chair. breathing on room air. he reports that he does not feel the subjective shortness of breath as he did yesterday. He attributes those episodes possibly to anxiety. no chest pain. no palpitations. no headache. no dizziness. denies other symptoms Patient awaiting LifeVest (3) Dyslipidemia: -started on atorvastatin 80mg qHS as inpatient, continue (4) Obesity: with BMI of 35 -management of cardiac health as above Hypomagnesemia -serum magnesium 1.7 on 03/18/2020, agree with ICU physician orders oral magnesium supplementation -serum magnesium is 2 on 03/19/2020 -serum magnesium is 2.1 on 03/21/2020 DVT Prophylaxis: Lovenox subcutaneous daily while as inpatient as per cardiology Full Code Follows with Dr Ford for routine care Admission and Anticipated Discharge Date Admission Date: March 17, 2020 Subjective Patient sitting on chair. breathing on room air. he reports that he does not feel the subjective shortness of breath as he did yesterday. He attributes those episodes possibly to anxiety. no chest pain. no palpitations. no headache. no dizziness. denies other symptoms he is awaiting for Life Vest so that he can be discharged from hospital Review of Systems Review of Systems: All systems reviewed & are unremarkable except as noted in Subjective Physical Exam Constitutional: comfortable Eyes: PERRL, conjunctivae normal, anicteric sclerae EOM intact bilaterally ENMT: external ear and nose normal, oropharynx normal Neck: normal visual inspection Respiratory: normal respiratory effort Cardiovascular: Rate/Rhythm: regular rate and regular rhythm Gastrointestinal (Abdomen): Inspection/Auscultation: abdomen normal to inspection Percussion/Palpation: abdomen soft Musculoskeletal: Head/Neck/Chest: normocephalic Neurologic: PERRL, EOMI, accommodation nl, no face palsy, no dysarthria Psychiatric: A+Ox3, euthymic affect Results & Data Results & Data ([facility]) Vital Signs (Past 12 Hours) Vital Signs Temp Pulse Pulse Pulse Resp BP BP 03/21/20 07:27 36.6 C 83 18 114/72 03/21/20 04:04 37.4 C 82 16 114/73 03/20/20 23:18 36.6 C 78 18 99/63 L Pulse Ox 03/21/20 07:27 95 03/21/20 04:04 96 03/20/20 23:18 97
--- NOTE | 2020-03-21 14:08 | Discharge Summary ---
Date of Service March 21, 2020 Admission HPI Per Admitting Provider Pt is 70 y/o M with PMH dyslipidemia, obesity presented to [facility] from [facility] ER today for CP and STEMI. Pt states 2:30am had indigestion and woke up around 8 AM today and developed chest pain, diaphoresis, some SOB. Denies cough, fever,chills, N/V/D/C, VELEZ, syncope, sore throat, rhinorrhea, abdominal pain, paresthesias, extremity edema, rashes, urinary symptoms. He was seen at [facility] ER initial EKG reported to show ST depression in leads II, III, aVF, V3-V5, ST elevation in V1. Repeat EKG with ST elevation in V1-V5. Patient was started on heparin drip and was transferred by EMS to [facility]. Pt received ELLIOTT to LAD and ELLIOTT to first diagonal. Reported during procedure pt with mild hypotension and was given IVF and then was noted to be requiring increased oxygen and on 15L non-rebreather. Pt was given 40mg lasix IV. Pt transferred to ICU and received nebulizer treatment with reported improvement of wheezing. Post op pt with dry cough. He reports no further chest pain and reports his breathing feels improved. Denies N/V, VELEZ, diaphoresis. Labs at [facility] ER reviewed: WBC: 7, H/H: 15/43, Plt: 252, K: 3.8, Na: 139, Cl: 105, CO2: 18, gluc: 145, Ca: 8.5, BUN: 15, Cr: 0.8, GFR>60, Troponin T high sensitivity: 21 (range 0-22). Principal Diagnosis ST ELEVATION MYOCARDIAL INFRACTION INVOLVING LEFT ANTERIOR DESCENDING (LAD) CORONARY ARTERY AND 1ST DIAGONAL AND MID RIGHT CORONARY ARTERY (RCA) STATUS POST CARDIAC CATH WITH DRUG ELUTING STENTS Acute Respiratory Failure with Hypoxia secondary to pulmonary edema; Cough, Wheezing Ischemic Cardiomyopathy Dyslipidemia Discharge Exam Constitutional comfortable Eyes PERRL, conjunctivae normal, anicteric sclerae EOM intact bilaterally ENMT external ear and nose normal, oropharynx normal Neck normal visual inspection Respiratory normal respiratory effort Cardiovascular Rate/Rhythm: regular rate and regular rhythm Gastrointestinal (Abdomen) Inspection/Auscultation: abdomen normal to inspection Percussion/Palpation: abdomen soft Musculoskeletal Head/Neck/Chest: normocephalic Neurologic PERRL, EOMI, accommodation nl, no face palsy, no dysarthria Psychiatric A+Ox3, euthymic affect Discharge Data Allergies Allergy/AdvReac Type Severity Reaction Status Date / Time No Known Drug Allergies Allergy Unknown NONE Verified 08/19/14 10:37 Consultations 03/17/20 12:07 Consult Case Management - Discharge Planning Routine Consult [employer] Supervisor Routine 03/17/20 15:20 Consult Hospitalist Routine 03/17/20 16:52 Consult Case Management - Discharge Planning Routine Procedures Performed Operation Date: 03/17/20 10:00 Actual Procedures s Drug Eluting Stent SGl Vessel - Cordell Tran MD s Cineradiography w/Routine Exam - Cordell Tran MD s IVUS Coronary Single Vessel - Cordell Tran MD s Cath, Left with Cors and Vent - Cordell Tran MD s Drug Eluting Stent each ADDTL Vessel - Cordell Tran MD p Aspiration/PCI w/ELLIOTT for Stemi - Cordell Tran MD Operation Date: 03/18/20 08:15 Actual Procedures p Drug Eluting Stent SGl Vessel - Cordell Tran MD s Cath, Left with Cors and Vent - Cordell Tran MD s Cineradiography w/Routine Exam - Cordell Tran MD s Ultrasound Vascular Access - Cordell Tran MD Ordered Studies 03/17/20 10:02 CL Cath Imgs for PACS use only Routine 03/17/20 13:01 CL IVUS Coronary Single Vessel Routine 03/18/20 08:12 CL Cath Imgs for PACS use only Routine Hospital Course (1) STEMI (ST elevation myocardial infarction): ST ELEVATION MYOCARDIAL INFRACTION INVOLVING LEFT ANTERIOR DESCENDING (LAD) CORONARY ARTERY AND 1ST DIAGONAL AND MID RIGHT CORONARY ARTERY (RCA) -70 y/o M with PMH dyslipidemia, obesity 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 when returned to ICU, patient then with coughing and wheezing. Patient was given diuretics and nebulizer treatment. was also given dose of ceftriaxone and Doxycycline but this was then discontinued as by ICU team as procalcitonin negative -03/18/2020: staged PCI earlymid RCA with single drug-eluting stent, on 4 liters/min oxygen -03/19/2020: on 2/liters/min nasal cannula. -03/20/2020: Patient breathing on room air. He reports that intermittently, he feels subjective shortness of breath. when this occurred with hospitalist in the room, patient had oxygen saturation checked and was doing okay at 93%. Generally patient does not feel short of breath. No chest pain. No palpitations. no abdominal pain. no headache. no dizziness. no nausea. no vomiting continue cardiac medications of aspirin 81 mg daily, Ticagrelor 90 mg BID, Losartan 25 mg daily, atorvastatin 80 mg qHS, spirolactone, metoprolol has been increased from 25 mg BID to 50 mg BID as per cardiology service. 03/21/2020: Patient sitting on chair. breathing on room air. he reports that he does not feel the subjective shortness of breath as he did yesterday. He attributes those episodes possibly to anxiety. no chest pain. no palpitations. no headache. no dizziness. denies other symptoms ISCHEMIC CARDIOMYOPATHY -discharge to home with LifeVest because of ischemic cardiomyopathy with ejection fraction of 30 to 35 percent -Cardiac discharge medications sent electronically to [address] [place] [id number] -Patient should follow with Dr. Dayday Tran or his colleagues at Cardiology clinic ([facility] [address], [address] [place] [address] ) -Patient has followup primary care clinic appointment with 03/28/2020 9:40 AM Provider Jaziel Cardoza MD [facility] (3) Dyslipidemia: -started on atorvastatin 80mg qHS as inpatient, continue (4) Obesity: with BMI of 35 -management of cardiac health as above Hypomagnesemia -serum magnesium 1.7 on 03/18/2020, agree with ICU physician orders oral magnesium supplementation -serum magnesium is 2 on 03/19/2020 -serum magnesium is 2.1 on 03/21/2020 DVT Prophylaxis: Lovenox subcutaneous daily while as inpatient as per cardiology Full Code Follows with Dr Ford for routine care Total Time Total Time Spent Total Time Spent (In Minutes): 40 minutes Total Time Includes: Examination of the Patient, Discharge Planning, Medication Reconciliation and Communication With Other Providers Discharge Plan Discharge Items Patient Disposition: Home - Self-Care Reason For Visit: STEMI Discharge Diagnosis: ST ELEVATION MYOCARDIAL INFRACTION INVOLVING LEFT ANTERIOR DESCENDING (LAD) CORONARY ARTERY AND 1ST DIAGONAL AND MID RIGHT CORONARY ARTERY (RCA) STATUS POST CARDIAC CATH WITH DRUG ELUTING STENTS Acute Respiratory Failure with Hypoxia secondary to pulmonary edema; Cough, Wheezing Ischemic Cardiomyopathy Dyslipidemia Condition on Discharge: Good Activity: Per Instructions section Non-emergency contact: Primary Care Provider and [employer]er Call non-emergency contact if: you have any medication questions Follow-up/Referrals: Hayden Ford MD [Primary Care Provider] - 03/28/20 9:40 am Diet: Heart Healthy Addtl Attending Provider Instructions: discharge to home with LifeVest because of ischemic cardiomyopathy with ejection fraction of 30 to 35 percent Cardiac discharge medications sent electronically to [address] [place] [id number] Patient should follow with Dr. Dayday Tran or his colleagues at Cardiology clinic ([address], [address] [place] [id number] ) Patient has followup primary care clinic appointment with 03/28/2020 9:40 AM Provider Jaziel Cardoza MD [facility] Pending Studies at Discharge: No Stand-Alone Forms: My [facility], Smoking Cessation Medications and DC Order Prescriptions: New atorvastatin 40 mg Tablet 80 mg PO HS 30 Days Qty: 60 RF: 0 aspirin 81 mg Tablet,Delayed Release (Dr/Ec) 81 mg PO QAM 30 Days Qty: 30 RF: 0 spironolactone 25 mg Tablet 25 mg PO QAM 30 Days Qty: 30 RF: 0 losartan 25 mg Tablet 25 mg PO QAM 30 Days Qty: 30 RF: 0 metoprolol tartrate 50 mg Tablet 50 mg PO BID 30 Days Qty: 60 RF: 0 Brilinta 90 mg Tablet 90 mg PO BID 30 Days Qty: 60 RF: 0 Continued pyridoxine (vitamin B6) [Vitamin B-6] 100 mg Tablet 100 mg PO DAILY RF: 0 [place]-3 Fish Oil 300-1,000 mg Capsule 1 cap PO DAILY RF: 0 Glucosamine Chondroitin 550-30-1 mg Capsule 1 cap PO DAILY RF: 0 Discharge Orders: Discharge Order (Routine); Ordered 03/21/20 Ordered By: Zak Burt/Other Patient Handouts: Cardiomyopathy Dc, Heart Attack Recovery Plan Admission Data Admit Date/Time: 03/17/20 12:07 Attending Provider: Zak Reynolds Admit Provider: Zak Reynolds Primary Care Provider: Hayden Ford Other Providers: Remi Whyte ; Zak Reynolds Other Interventions: Discharge Summary Assessment (RN) Last Done: 03/21/20 13:54
--- NOTE | 2020-03-21 16:24 | Cardiology Progress Note ---
Date of Service March 21, 2020 Assessment & Plan (1) STEMI (ST elevation myocardial infarction): --Post primary PCI with ELLIOTT to LAD, bifurcating diagonal 2. Ischemic cardiomyopathy/acute systolic heart failureEF 25 to 30% initially, 30 to 35% on follow-up echocardiography 3. Residual severe RCA disease -- post PCI with ELLIOTT to mid RCA 4. Dyslipidemia Ok for discharge today from cardiac standpoint. Home on: - DAPT with ASA, ticagrelor. - change metoprolol tartrate to toprol xl 100mg daily - continue losartan, spironolactone - continue curretn statin. - home with LifeVest. Follow-up in 3-4 weeks with repeat echo. - Will discuss cardiac rehab options at that time. Admission and Anticipated Discharge Date Admission Date: March 17, 2020 Subjective He is feeling well today. No chest pain. Breathing comfortably. No other new concerns. Tele reviewed -- sinus. no events. Review of Systems Review of Systems: All systems reviewed & are unremarkable except as noted in HPI & below Physical Exam Physical Exam: General: comfortable Eyes: Sclerae anicteric HENT: Oropharynx clear mucous membranes moist Lungs: lungs clear Cardiac: regular, no murmur Vascular: Right radial artery access site with mild ecchymosis, no hematoma. Distal pulse and sensation intact. Abdomen: Soft, nontender, nondistended, positive bowel sounds. Extremities: Well perfused Skin: No rashes or lesions. Neuro: Nonfocal Psych: Alert orient x3, normal affect and mood ENMT: Mallampati Class: III Results & Data ([facility]) Vital Signs (Past 12 Hours) Vital Signs Temp Pulse Resp BP Pulse Ox 03/21/20 13:54 97.9 F 71 20 99/66 L 97 03/21/20 10:59 97.9 F 71 20 99/66 L 97 03/21/20 07:27 97.9 F 83 18 114/72 95 PG Care Time/CCT Total # of Minutes Spent Total Time Spent with Patient: Total time spent is greater than 50% in coordination of care (as documented) at patient's floor/unit and/or counseling patient: Coding Level of Care Code 45397 Subseq Hosp Care Lvl 2 Diagnoses STEMI (ST elevation myocardial infarction) I21.3
== END 2020-03-21 15:16 | disposition home or self-care (01) | DRG 246 ==
LOC: CC 10:08 → 1E 12:07 → 2S 03-20 16:16